=== PATIENT | female | born 1930 | race Caucasian/White ===

== ENCOUNTER 2020-03-01 09:22 | Inpatient (IN) | payer MEDICARE, BC ==
--- NOTE | 2020-03-01 09:28 | CT ---
EXAMINATION TYPE: CT chest wo con DATE OF EXAM: 03/01/2020 COMPARISON: NONE HISTORY: Pleural Effusion CT DLP: 374.4 mGycm. Automated Exposure Control for Dose Reduction was Utilized. TECHNIQUE: CT scan of the thorax is performed without IV contrast. FINDINGS: LUNGS: There is a large left pleural effusion with a loculated component anteriorly of the upper and midlung. Multifocal compressive atelectasis is seen in the lingula, upper lobe, and lower lobe. Perip heral predominant reticular early fibrotic change is seen without honeycombing. Right apical pleural parenchymal scarring is greater than left. No pneumothorax is seen. Scattered areas of subsegmental a telectasis on the right. MEDIASTINUM: Lack of IV contrast is noted to limit evaluation for mediastinal and especially hilar ad enopathy. There are no definitive greater than 1 cm hilar or mediastinal lymph nodes. Trace pericardi al effusion. Moderate coronary artery calcifications. OTHER: Surgical clips in the left breast along the pectoralis muscle from prior lumpectomy. Small hia yana hernia. High density in the gallbladder fundus. Evaluation for ultrasound is recommended on a non emergent basis to evaluate for polyp as this is nondependent. Possible fat in the gallbladder wall. E xtensive atherosclerosis of the upper abdominal aorta. Too small to accurately characterize right franki al lesion. Superior endplate deformity is seen of the L2 vertebral body, age indeterminate. 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 Mild compression deformity is also seen of T3 there is age-inde terminate. Sclerotic foci are punctate of T2 and T10 on sagittal image 53. These are indeterminant. IMPRESSION: 1. Large left pleural effusion in this symptomatic patient. Attempt was made to contact the ordering provider, however attempt was unsuccessful and the patient was instructed by the airplane technician Tonia of recommendation to proceed to the ER for evaluation of shortness of breath and potential thoracente sis. 2. Small pericardial effusion. 3. Indeterminant age compression deformities of L2 and T3. Sclerotic foci at T2 and T10 that are inde terminate. Given this patient's history of breast cancer nuclear medicine bone scan or PET/CT could b e considered. A [place] level critical message alert has been initiated for Helen Moss MD via the [facility] Critical Results System on 03/01/2020 9:25 AM. This message alert has been sent to Helen mcdonald MD via the preferences provided by the clinician for the receipt of Radiology Critical Fin rubi. Message ID [id number].
[2020-03-01 09:56] LABS: Basophils % (A) 0 %; Eosinophils # (A) 0.1 k/uL (0-0.7); Eosinophils % (A) 2 %; HCT 36.8 % (34.0-46.0); HGB 12.1 gm/dL (11.4-16.0); Lymphocytes # (A) 0.5 k/uL (1.0-4.8); Lymphocytes % (A) 10 %; MCH 40.5 pg (25.0-35.0); MCHC 32.9 g/dL (31.0-37.0); MCV 122.9 fL (80.0-100.0); Macrocytosis Marked; Mean Platelet Volume 7.8; Monocytes # (A) 0.3 k/uL (0-1.0); Monocytes % (A) 6 %; Neutrophils # (A) 4.6 k/uL (1.3-7.7); Neutrophils % (A) 80 %; Platelet Count 337 k/uL (150-450); RBC 2.99 m/uL (3.80-5.40); RDW 13.5 % (11.5-15.5); WBC 5.7 k/uL (3.8-10.6)
[2020-03-01 10:03] LABS: INR 0.9 (<1.2); Partial Thromboplastin Time 23.1 sec (22.0-30.0); Prothrombin Time 9.8 sec (9.0-12.0)
[2020-03-01 10:06] LABS: Poikilocytosis (M) Present
[2020-03-01 10:07] LABS: ALT 16 U/L (4-34); AST 26 U/L (14-36); African American GFR (CKD) >90 (>60 ml/min/1.73 sqM); Albumin 4.1 g/dL (3.5-5.0); Alkaline Phosphatase 88 U/L (38-126); Anion Gap 8 mmol/L; Blood Urea Nitrogen 21 mg/dL (7-17); Calcium 9.8 mg/dL (8.4-10.2); Carbon Dioxide 25 mmol/L (22-30); Chloride 100 mmol/L (98-107); Glucose 174 mg/dL (74-99); Magnesium 1.9 mg/dL (1.6-2.3); Non-African American GFR(CKD) 81 (>60 ml/min/1.73 sqM); Potassium 4.2 mmol/L (3.5-5.1); Sodium 133 mmol/L (137-145); Total Protein 7.2 g/dL (6.3-8.2)
[2020-03-01] MEDS ORDERED: NALOXONE 0.4 MG/ML 1 ML VIAL IV PRN (10:47)
--- NOTE | 2020-03-01 10:47 | ED ---
SOB HPI - General Chief Complaint: Shortness of Breath Stated Complaint: pleural effusion Time Seen by Provider: 03/01/20 09:25 Source: patient Mode of arrival: wheelchair Limitations: no limitations - History of Present Illness Initial Comments: The patient is an 89-year-old female with past history of breast cancer, valvular disease who presents to the emergency department presents to the emergency department for abnormal CT result. She states that she saw Dr. Holder a couple of weeks ago for her normal echo. They did see fluid around her heart and on her left lung. Because of this he sent her for a CT of her chest today. Study was performed which demonstrated a large left-sided pleural effusion. She was called and it was recommended to her going to the emergency department for drainage. The patient arrives stating that she has b een short of breath for considered stable. At time. States that it has not been any worse recently. Denies cough or hemoptysis. No fevers or chills. Patient has a history of breast cancer however is in remission. Dr. Artur méndez called the hospital to her that the patient coming in. - Related Data Home Medications Medication Instructions Recorded Confirmed Aspirin EC [Ecotrin] 325 mg PO DAILY 03/01/20 03/01/20 Atorvastatin [Lipitor] 10 mg PO DAILY 03/01/20 03/01/20 Calcium Carbonate 500 mg PO DAILY 03/01/20 03/01/20 Cholecalciferol (Vitamin D3) 2,000 unit PO DAILY 03/01/20 03/01/20 [Vitamin D3] Cyanocobalamin (Vitamin B-12) 1,000 mcg PO DAILY 03/01/20 03/01/20 [Vitamin B-12] Furosemide [Lasix] 40 mg PO DAILY 03/01/20 03/01/20 Hydroxyurea [Hydrea] 1,000 mg PO MO 03/01/20 03/01/20 Hydroxyurea [Hydrea] 1,500 mg PO SUTU 03/01/20 03/01/20 Lisinopril [Zestril] 2.5 mg PO DAILY 03/01/20 03/01/20 Metoprolol Succinate (ER) [Toprol 50 mg PO DAILY 03/01/20 03/01/20 XL] Potassium Chloride 10 meq PO DAILY 03/01/20 03/01/20 Allergies Allergy/AdvReac Type Severity Reaction Status Date / Time alendronate sodium Allergy FACE GETS Verified 03/01/20 11:09 RED AND PEELS Review of Systems ROS Statement: Those systems with pertinent positive or pertinent negative responses have been documented in the HPI. ROS Other: All systems not noted in ROS Statement are negative. Past Medical History Past Medical History: Cancer Additional Past Medical History / Comment(s): leaking heart valve, breast cancer History of Any Multi-Drug Resistant Organisms: None Reported Additional Past Surgical History / Comment(s): left breast partial mastectomy Past Psychological History: No Psychological Hx Reported Smoking Status: Never smoker Past Alcohol Use History: None Reported Past Drug Use History: None Reported General Exam Limitations: no limitations General appearance: alert, in no apparent distress Head exam: Present: atraumatic, normocephalic, normal inspection Eye exam: Present: normal appearance, PERRL, EOMI. Absent: scleral icterus, conjunctival injection, periorbital swelling ENT exam: Present: normal exam, mucous membranes moist Neck exam: Present: normal inspection. Absent: tenderness, meningismus, lymphadenopathy Respiratory exam: Present: rales (left ), decreased breath sounds (left ). A bsent: respiratory distress, wheezes, rhonchi, stridor Cardiovascular Exam: Present: regular rate, normal rhythm, normal heart sounds. Absent: systolic murmur, diastolic murmur, rubs, gallop, clicks GI/Abdominal exam: Present: soft, normal bowel sounds. Absent: distended, tenderness, guarding, rebound, rigid Extremities exam: Present: normal inspection, full ROM, normal capillary refill. Absent: tenderness, pedal edema, joint swelling, calf tenderness Back exam: Present: normal inspection Neurological exam: Present: alert, oriented X3, CN II-XII intact Psychiatric exam: Present: normal affect, normal mood Skin exam: Present: warm, dry, intact, normal color. Absent: rash Course Vital Signs 03/01/20 03/01/20 03/01/20 09:25 10:41 11:08 Temperature 98.0 F Pulse Rate 76 86 81 Respiratory 18 22 16 Rate Blood Pressure 140/79 115/76 146/50 O2 Sat by Pulse 95 98 99 Oximetry 03/01/20 03/01/20 03/01/20 12:01 14:13 14:50 Temperature 98.7 F Pulse Rate 126 H 143 H 163 H Respiratory 16 16 Rate Blood Pressure 102/75 113/76 O2 Sat by Pulse 99 99 Oximetry Medical Decision Making - Medical Decision Making The patient placed in room 6. A thorough history and physical exam was performed. Patient to continuous pulse ox and cardiac monitoring. Laboratory studies were conducted. CT was reviewed. Laboratory studies are remarkable for a sodium of 133. Dr. Mancuso is made aware of the patient's presence in the ER and he does come down to do a thoracentesis. Repeat chest x-rays performed which demonstrates a small pneumothorax. Because of this he is requesting to keep the patient. She'll be admitted to Dr. Plummer. After the patient's procedure she did flip into A. fib with a rapid ventricular rate. Patient has no history of atrial fibrillation is not anticoagulated. I did repeat a chest x-ray to ensure that it wasn't secondary to pneumothorax. It demonstrates a 50% pneumothorax however not worsened with the previous x-ray. I called and discussed case with Dr. Siddiqui who recommended that I place the patient on amiodarone. The patient was then admitted to the floor. Dr. Mancuso did see the patient again and stated that she should go to the ICU. Patient was then taken to the floor in stable condition - Lab Data Result diagrams: 03/02/20 03:38 03/02/20 03:38 Lab Results 03/01/20 03/01/20 03/01/20 Range/Units 09:42 09:42 09:42 WBC 5.7 (3.8-10.6) k/uL RBC 2.99 L (3.80-5.40) m/uL Hgb 12.1 (11.4-16.0) gm/dL Hct 36.8 (34.0-46.0) % MCV 122.9 H (80.0-100.0) fL MCH 40.5 H (25.0-35.0) pg MCHC 32.9 (31.0-37.0) g/dL RDW 13.5 (11.5-15.5) % Plt Count 337 (150-450) k/uL Neutrophils % 80 % Lymphocytes % 10 % Monocytes % 6 % Eosinophils % 2 % Basophils % 0 % Neutrophils # 4.6 (1.3-7.7) k/uL Lymphocytes # 0.5 L (1.0-4.8) k/uL Monocytes # 0.3 (0-1.0) k/uL Eosinophils # 0.1 (0-0.7) k/uL Basophils # 0.0 (0-0.2) k/uL Manual Slide Review Performed Poikilocytosis (manual Present Macrocytosis Marked A PT 9.8 (9.0-12.0) sec INR 0.9 (<1.2) APTT 23.1 (22.0-30.0) sec Sodium 133 L (137-145) mmol/L Potassium 4.2 (3.5-5.1) mmol/L Chloride 100 (98-107) mmol/L Carbon Dioxide 25 (22-30) mmol/L Anion Gap 8 mmol/L BUN 21 H (7-17) mg/dL Creatinine 0.63 (0.52-1.04) mg/dL Est GFR (CKD-EPI)AfAm >90 (>60 ml/min/1.73 sqM) Est GFR (CKD-EPI)NonAf 81 (>60 ml/min/1.73 sqM) Glucose 174 H (74-99) mg/dL Plasma Lactic Acid Jed (0.7-2.0) mmol/L Calcium 9.8 (8.4-10.2) mg/dL Magnesium 1.9 (1.6-2.3) mg/dL Total Bilirubin 1.0 (0.2-1.3) mg/dL AST 26 (14-36) U/L ALT 16 (4-34) U/L Alkaline Phosphatase 88 (38-126) U/L Troponin I (0.000-0.034) ng/mL NT-Pro-B Natriuret Pep pg/mL Total Protein 7.2 (6.3-8.2) g/dL Albumin 4.1 (3.5-5.0) g/dL 03/01/20 03/01/20 03/01/20 Range/Units 09:42 09:42 09:42 WBC (3.8-10.6) k/uL RBC (3.80-5.40) m/uL Hgb (11.4-16.0) gm/dL Hct (34.0-46.0) % MCV (80.0-100.0) fL MCH (25.0-35.0) pg MCHC (31.0-37.0) g/dL RDW (11.5-15.5) % Plt Count (150-450) k/uL Neutrophils % % Lymphocytes % % Monocytes % % Eosinophils % % Basophils % % Neutrophils # (1.3-7.7) k/uL Lymphocytes # (1.0-4.8) k/uL Monocytes # (0-1.0) k/uL Eosinophils # (0-0.7) k/uL Basophils # (0-0.2) k/uL Manual Slide Review Poikilocytosis (manual Macrocytosis PT (9.0-12.0) sec INR (<1.2) APTT (22.0-30.0) sec Sodium (137-145) mmol/L Potassium (3.5-5.1) mmol/L Chloride (98-107) mmol/L Carbon Dioxide (22-30) mmol/L Anion Gap mmol/L BUN (7-17) mg/dL Creatinine (0.52-1.04) mg/dL Est GFR (CKD-EPI)AfAm (>60 ml/min/1.73 sqM) Est GFR (CKD-EPI)NonAf (>60 ml/min/1.73 sqM) Glucose (74-99) mg/dL Plasma Lactic Acid Jed 1.3 (0.7-2.0) mmol/L Calcium (8.4-10.2) mg/dL Magnesium (1.6-2.3) mg/dL Total Bilirubin (0.2-1.3) mg/dL AST (14-36) U/L ALT (4-34) U/L Alkaline Phosphatase (38-126) U/L Troponin I <0.012 (0.000-0.034) ng/mL NT-Pro-B Natriuret Pep 519 pg/mL Total Protein (6.3-8.2) g/dL Albumin (3.5-5.0) g/dL - EKG Data EKG Comments: EKG performed at 1155 demonstrates age or fibrillation with a rapid ventricular rate of 142. QRS 82. QTC of 415. No acute ST segment elevations. Mild ST depression likely rate dependent. Critical Care Time Critical Care Time: Yes Critical Care Time: 35 minutes Disposition Clinical Impression: Shortness of breath, Pleural effusion Disposition: ADMITTED IP TO THIS HOSP Condition: Stable Is patient prescribed a controlled substance at d/c from ED?: No Decision to Admit Reason: Admit from EC Decision Date: 03/01/20 Decision Time: 10:46
--- NOTE | 2020-03-01 11:51 | US ---
EXAMINATION TYPE: US chest DATE OF EXAM: 03/01/2020 COMPARISON: CT 03/01/2020 CLINICAL HISTORY: left pleural effusion. Bedside thora with Dr Plummer TECHNIQUE: Targeted ultrasound of the posterior lower left hemithorax EXAM MEASUREMENTS: Left Pleural Effusion pocket size: 10.3 cm Left skin surface to fluid distance: 3.1 cm Left side marked for possible thoracentesis outside the dept. Pulmonologists are able to review the images in the patient?s EMR. IMPRESSIONS: Large left pleural effusion with maximum dimension of 10.3 cm.
--- NOTE | 2020-03-01 11:53 | XR ---
EXAMINATION TYPE: XR chest 1V portable DATE OF EXAM: 03/01/2020 COMPARISON: CT thorax of the same date HISTORY: Status post left-sided thoracentesis TECHNIQUE: Single frontal view of the chest is obtained. FINDINGS: There is marked improvement in degree of left-sided pleural effusion with possible small l eft apical pneumothorax. Left basilar airspace disease likely on the basis of atelectasis. Unfolding of the thoracic aorta. Senescent change of the right lungs and diffuse osseous demineralization. IMPRESSION: Possible small left apical pneumothorax versus overlying skin fold. Repeat radiograph is recommended. Marked improvement of the left pleural effusion. A [place] level critical message alert has been initiated for Natan Chung MD~[id number] via the [facility] Critical Results System on 03/01/2020 11:51 AM. This message alert has been sent to Natan Chung MD~[id number] via the preferences provided by the clinician for the receipt of Radiology Critical Findin gs. Message ID [id number].
[2020-03-01] MEDS ORDERED: HYDROXYUREA 500 MG CAP PO SCH (12:00)
--- NOTE | 2020-03-01 12:09 | P.CNPUL ---
History of Present Illness Consult date: 03/01/20 Requesting physician: Micheline Plummer Reason for consult: pleural effusion Chief complaint: Shortness of breath History of present illness: This is an 89-year-old female with history of breast cancer, previous left breast partial mastectomy. Known history of hypertension, hypercholesterolemia, patient had a recent chest x-ray for symptoms of shortness of breath, and she was told that she had left pleural effusion. CT of the chest showed large sized pleural effusion on the left side, hence patient was sent to the ER by the emergency room department because of her left pleural effusion. I saw the patient in the ER, and she was complaining of shortness of breath for the last [address] of the chest was reviewed. Patient underwent thoracentesis in the ER, and roughly 1200 mL of grossly bloody pleural effusion was drained from the left pleural space. However the patient developed small iatrogenic apical pneumothorax, hence I recommended admitting the patient overnight, observation, and repeat chest x-ray in a.m. Unless the patient develops worsening shortness of breath, chest x-ray could be done sooner. Please refer to the operative report. Review of Systems Constitutional: Negative HEENT: Negative Pulmonary: As noted in HPI. Cardiac: Negative GI: Negative Genitourinary: Negative Musculoskeletal: Negative Skin: Negative Endocrine: Negative Psychiatric: Negative Neurologic: Negative Lymphatics: Negative Past Medical History Past Medical History: Cancer Additional Past Medical History / Comment(s): leaking heart valve, breast cancer History of Any Multi-Drug Resistant Organisms: None Reported Additional Past Surgical History / Comment(s): left breast partial mastectomy Past Psychological History: No Psychological Hx Reported Smoking Status: Never smoker Past Alcohol Use History: None Reported Past Drug Use History: None Reported Medications and Allergies Home Medications Medication Instructions Recorded Confirmed Type Aspirin EC [Ecotrin] 325 mg PO DAILY 03/01/20 03/01/20 History Atorvastatin [Lipitor] 10 mg PO DAILY 03/01/20 03/01/20 History Calcium Carbonate 500 mg PO DAILY 03/01/20 03/01/20 History Cholecalciferol (Vitamin D3) 2,000 unit PO DAILY 03/01/20 03/01/20 History [Vitamin D3] Cyanocobalamin (Vitamin B-12) 1,000 mcg PO DAILY 03/01/20 03/01/20 History [Vitamin B-12] Furosemide [Lasix] 40 mg PO DAILY 03/01/20 03/01/20 History Hydroxyurea [Hydrea] 1,000 mg PO MO 03/01/20 03/01/20 History Hydroxyurea [Hydrea] 1,500 mg PO SUTU 03/01/20 03/01/20 History Lisinopril [Zestril] 2.5 mg PO DAILY 03/01/20 03/01/20 History Metoprolol Succinate (ER) [Toprol 50 mg PO DAILY 03/01/20 03/01/20 History Xl] Potassium Chloride 10 meq PO DAILY 03/01/20 03/01/20 History Allergies Allergy/AdvReac Type Severity Reaction Status Date / Time alendronate sodium Allergy FACE GETS Verified 03/01/20 11:09 RED AND PEELS Physical Exam Vitals: Vital Signs Temp Pulse Resp BP Pulse Ox 03/01/20 11:08 81 16 146/50 99 03/01/20 10:41 86 22 115/76 98 03/01/20 09:25 98.0 F 76 18 140/79 95 Intake and Output 02/29/20 03/01/20 03/01/20 22:59 06:59 14:59 Other: Weight 79.379 kg Physical Exam: Physical exam revealed an 89-year-old female, extremely pleasant, in no distress. Head: Atraumatic, normocephalic. HEENT:[Neck is supple.] [No neck masses.] [No thyromegaly.] [No JVD.] Chest: [Clear on the right side, diminished breath sounds on the left side. No rhonchi no wheezes. Cardiac Exam: [Normal S1 and S2, no S3 gallop, no murmur.] Abdomen: [Soft, nontender, no megaly, no rebound, no guarding, normal bowel sounds.] Extremities: [No clubbing, no edema, no cyanosis.] Neurological Exam: [No focal neurologic deficit.] Alert and oriented 3. Psychiatric: Normal mood, affect and normal mental status examination. Skin: No rashes. Results - Laboratory Findings CBC and BMP: 03/01/20 09:42 03/01/20 09:42 PT/INR, D-dimer PT 9.8 sec (9.0-12.0) 03/01/20 09:42 INR 0.9 (<1.2) 03/01/20 09:42 Abnormal lab findings: Abnormal Labs 03/01/20 03/01/20 09:42 09:42 RBC 2.99 L MCV 122.9 H MCH 40.5 H Lymphocytes # 0.5 L Macrocytosis Marked A Sodium 133 L BUN 21 H Glucose 174 H - Diagnostic Findings Chest x-ray: image reviewed CT scan - chest: image reviewed Additional studies: Ultrasound of the chest was reviewed and good sized left-sided pleural effusion noted Assessment and Plan Assessment: Impression: Left-sided pleural effusion, bloody, strongly suspicious for malignant pleural effusion. Iatrogenic left sided small apical pneumothorax. Recommendation: Patient will be admitted overnight, observed, repeat chest x-ray would be done later today or in a.m. Fluid was sent for different diagnostic studies including cytology. Discussed with the patient and her daughter the plan and willing to be admitted to the hospital at least overnight. We'll continue to follow. Time with Patient: Greater than 30
[2020-03-01] MEDS: FUROSEMIDE 40 MG TAB PO SCH (12:34)
[2020-03-01] MEDS ORDERED: MAGNESIUM SULFATE-D5W PMX 1 GM in DEXTROSE/WATER 1 100ML.BAG IVPB ONE (12:36)
[2020-03-01] MEDS ORDERED: DEXTROSE 5% IN WATER 250 ML with AMIODARONE 300 MG IV ONE (12:39)
--- NOTE | 2020-03-01 12:40 | XR ---
EXAMINATION TYPE: XR chest 1V portable DATE OF EXAM: 03/01/2020 COMPARISON: Chest x-ray earlier the same date. HISTORY: Atrial fibrillation post thoracentesis. Left apical pneumothorax. TECHNIQUE: Single frontal view of the chest is obtained. FINDINGS: Confirmation of a left apical pneumothorax estimated at approximately 15%. Small left pleu ral effusion has improved from the prior CT of the same date. Density at the right lung base relates to eventration of the hemidiaphragm and correlated with prior CT of 03/01/2020. Cardiomediastinal silh ouette is overall stable. Multifocal left-sided airspace disease represent atelectasis. Emphysematous changes and diffuse osseous demineralization again noted. IMPRESSION: Confirmation of a left apical pneumothorax status post thoracentesis. This is estimated at approximately 15%. A [place] level critical message alert has been initiated for Micheline Plummer MD via the [facility] Critical Results System on 03/01/2020 12:37 PM. This message alert has been sent to Micheline Plummer MD via the preferences provided by the clinician for the receipt of Radiology Critical Findings. [employer] e ID [id number].
[2020-03-01 13:28] LABS: Appearance,BF Bloody; Color,BF Red; Nucleated Cells, Body Fluid 156 /uL; RBC, Body Fluid 510000 /uL
--- NOTE | 2020-03-01 13:29 | PCN ---
PROCEDURE NOTE OPERATIVE REPORT: PROCEDURE PERFORMED: Left-sided thoracentesis. PREOPERATIVE DIAGNOSIS: Large left pleural effusion. POSTOPERATIVE DIAGNOSIS: Large left pleural effusion. ANESTHESIA USED: 2 mL of 1% lidocaine. PROCEDURE: The patient was seen in the ER, she was made aware of the procedure and the potential complications of the procedure, and consent was signed. Then, the area below the left scapula was prepared in a sterile fashion, drapes were applied. At the level of the 8th intercostal space, and tip of the scapula, the area was locally anesthetized. Then a 26-gauge needle was inserted at the same site, advanced into the pleural space until the fluid was obtained and the fluid was noted to be grossly bloody. Then a small incision was made. Standard thoracentesis catheter and needle were used, advanced into the pleural space, fluid was obtained, however, only couple 100 mL were obtained and noted to be grossly bloody. Then no further flow of fluid was noted. Multiple manipulations of the catheter did not make any improvement. Hence, the catheter was pulled out, and we called for ultrasound where in the area was localized with ultrasound, and at the same site, but 1 space lower, the area was prepared in a sterile fashion. Drapes were applied, and the area was locally anesthetized. With ultrasound available at bedside, the area was anesthetized, then a 26-gauge needle was inserted into the pleural space. Fluid was obtained. Again was noted to be grossly bloody and a small tiny incision was made, standard thoracentesis catheter and needle were used, advanced into the pleural space, and the fluid was obtained, drained about 1200 mL of grossly bloody fluid. However, at the end of the procedure, there was evidence of air coming out with the blood into the Pleur-evac container. Drained all the air and all the blood from the pleural space, and the chest x-ray was ordered postoperatively. There was evidence of a small left apical pneumothorax, it was probably about 10-15 percent pneumothorax noted on the left side. The patient was asymptomatic, hence I recommended admission and observation overnight and have a repeat chest x-ray in a.m. The procedure was well tolerated, but there was clearly evidence of iatrogenic left- sided pneumothorax. MMODL / IJN: [id number] /
[2020-03-01 13:34] LABS: Mononuclear WBC,Body Fluid 81 %; Polynuclear WBC,Body Fluid 19 %; Total Cells Counted,Body Fluid 100
--- NOTE | 2020-03-01 14:25 | XR ---
EXAMINATION TYPE: XR chest 1V portable DATE OF EXAM: 03/01/2020 COMPARISON: 03/01/2020 at 12:11 PM HISTORY: Follow-up pneumothorax TECHNIQUE: Single frontal view of the chest is obtained. FINDINGS: Mediastinal rotation to the right is partially attributable to patient positioning and rot ation. There is a similar-appearing left apical pneumothorax. Right diaphragmatic eventration, surgic al clips over the left lung, moderate pleural effusion on the left, and associated left basilar airsp sonal disease are similar to the prior. There remains diffuse osseous demineralization. IMPRESSION: Overall similar size of the left pneumothorax estimated at approximately 15%. Close surv eillance or thoracostomy tube placement recommended as there is new rightward mediastinal deviation, partially attribute able however to rotation and patient positioning. A [place] level critical message alert has been initiated for Natan Chung MD~[id number] via the [employer] [facility] Critical Results System on 03/01/2020 2:23 PM. This message alert has been sent to Natan Chung MD~[id number] via the preferences provided by the clinician for the receipt of Radiology Critical Finding s. Message ID [id number].
[2020-03-01 14:51] LABS: Glucose,Whole Blood 202 mg/dL (75-99)
[2020-03-01] MEDS: AMIODARONE 300 MG in DEXTROSE 5% IN WATER 250 ML IV SCH ×2 (19:00)
--- NOTE | 2020-03-01 19:26 | HP ---
HISTORY AND PHYSICAL DATE OF SERVICE: 03/01/2020 CHIEF COMPLAINT: Shortness of breath. HISTORY OF PRESENT ILLNESS: This 89 -year-old woman with a past medical history of leaky valve, breast cancer with partial mastectomy being followed by Dr. Carmen Reed in the outpatient setting is complaining of shortness of breath for the last couple days. Because of increased shortness, the patient came to [facility]. CT scan showed pleural effusion left side and Dr. Chung was able to drain about 1.3 L of fluid which is slightly bloody, but subsequently patient also had some 15% pneumothorax rather stable but the patient was noted to have atrial fibrillation with fast ventricular rate going up to 140. Patient was started on amiodarone drip and magnesium was also given. Patient admitted in ICU at this time. There is no history of fever, rigors or chills. No history of headache, loss of consciousness, seizures. 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 There is no history of any palpitations. No hematochezia or melena either. PAST MEDICAL HISTORY: Of leaky valve, history of breast cancer. MEDICATIONS: Home medications are: 1. KCl 10 mEq p.o. daily. 2. Toprol-XL 50 mg p.o. daily. 3. Zestril 2.5 mg daily. 4. Hydrea 1500 mg Monday, Monday and 1000 mg p.o. Monday. 5. Lasix 40 mg p.o. daily. 6. Vitamin B12 1000 mcg p.o. 7. Vitamin D3 2000 daily. 8. Calcium carbonate 500 mg p.o. daily. 9. Lipitor 10 mg daily. 10.Ecotrin 320 mg daily. ALLERGIES: ALENDRONATE. FAMILY HISTORY: No history of heart disease or strokes in the family. SOCIAL HISTORY: No history of smoking. No history of alcohol intake. REVIEW OF SYSTEMS: ENT: No diminished hearing. No diminished vision. CARDIOVASCULAR system as mentioned. RESPIRATION as mentioned earlier. GI no nausea or vomiting. no dysuria. NERVOUS SYSTEM: No numbness or weakness. ALLERGY/IMMUNOLOGY: No asthma or hayfever. MUSCULOSKELETAL as mentioned earlier. ENDOCRINE: No history of diabetes or hypothyroidism. HEMATOLOGY/ONCOLOGY: As mentioned earlier. CONSTITUTIONAL: As mentioned earlier. DERMATOLOGY: Negative. RHEUMATOLOGY: Negative. PSYCHIATRY: As mentioned earlier. PHYSICAL EXAM: Patient is alert, oriented x3. Pulse is 143, irregular. Blood pressure 113/76, respirations 16, temperature 98.7, pulse ox 99% on 2 L. HEENT: Conjunctivae normal. Oral mucosa moist. NECK is no jugular venous distention. No carotid bruit. No lymph node enlargement. CARDIOVASCULAR: S1, S2 muffled. RESPIRATION: Breath sounds diminished in the bases. Bilateral scattered rhonchi and crackles. ABDOMEN: Soft, nontender. No mass palpable. LEGS: No edema. No swelling. NERVOUS SYSTEM: Higher functions as mentioned earlier. Moves all 4 limbs. No focal motor or sensory deficits. LYMPHATICS: No lymph nodes palpable in the neck, axillae or groin. SKIN: No ulcer, no rashes and no bleeding. JOINTS: No active deforming arthropathy. LABS: WBC 5.6, hemoglobin 12.1, MCV 122.9, sodium 133, potassium 4.2, glucose 147. Fluid showed hemorrhagic fluid and mesothelioma. Cytology is pending. ASSESSMENT: 1. Acute left-sided pleural effusion status post thoracocentesis with 15% pneumothorax. 2. Atrial fibrillation with fast ventricular rate. 3. Hyponatremia. 4. Elevated random blood sugars. 5. Increased MCV. 6. History of left breast cancer with partial mastectomy. 7. History of leaky valve. 8. Hyperlipidemia. 9. Hypertension. 10.FULL CODE. RECOMMENDATIONS AND DISCUSSION: This 89 -year-old woman presented with multiple complex medical issues, we will monitor the patient closely, continue the current management. Continue with amiodarone drip and magnesium. Will repeat the lytes. Resume the home medications. We will also recommend a 2D echo with Doppler. Cardiology consultation. Pulmonary consultation. Monitor the patient in ICU. Overall prognosis guarded because of multiple complex medical issues as mentioned earlier. Patient had thoracocentesis and the possibly small heterogenic pneumothorax on the left side which is 15% and is rather stable. We will continue to monitor. Discussed with the patient who understands and agrees. A copy of this dictation forwarded to Dr. Carmen Reed who is the primary physician. MMODL / IJN: [id number] /
[2020-03-02 04:41] LABS: Basophils % (A) 0 %; Eosinophils # (A) 0.1 k/uL (0-0.7); Eosinophils % (A) 3 %; HGB 10.8 gm/dL (11.4-16.0); Lymphocytes # (A) 0.7 k/uL (1.0-4.8); Lymphocytes % (A) 15 %; MCHC 33.7 g/dL (31.0-37.0); Mean Platelet Volume 7.7; Monocytes # (A) 0.4 k/uL (0-1.0); Monocytes % (A) 9 %; Neutrophils % (A) 71 %; Platelet Count 279 k/uL (150-450); RBC 2.52 m/uL (3.80-5.40); RDW 13.4 % (11.5-15.5); WBC 4.3 k/uL (3.8-10.6)
[2020-03-02 04:47] LABS: MCH 42.9 pg (25.0-35.0); Macrocytosis Marked
[2020-03-02 05:00] LABS: African American GFR (CKD) >90 (>60 ml/min/1.73 sqM); Anion Gap 7 mmol/L; Blood Urea Nitrogen 19 mg/dL (7-17); Carbon Dioxide 24 mmol/L (22-30); Chloride 100 mmol/L (98-107); Glucose 160 mg/dL (74-99); Non-African American GFR(CKD) 82 (>60 ml/min/1.73 sqM); Potassium 3.8 mmol/L (3.5-5.1); Sodium 131 mmol/L (137-145)
[2020-03-02 05:14] VITALS: TEMP 98.1
[2020-03-02] MEDS: AMIODARONE 300 MG in DEXTROSE 5% IN WATER 250 ML IV SCH ×2 (05:23)
[2020-03-02] MEDS ORDERED: Potassium Replacement Protocol 1 EACH MISC MISCELLANE PRN (05:25)
[2020-03-02] MEDS ORDERED: POTASSIUM CHLORIDE ER 20 MEQ TAB.ER PO SCH (06:00)
--- NOTE | 2020-03-02 07:17 | XR ---
EXAMINATION TYPE: XR chest 1V portable DATE OF EXAM: 03/02/2020 COMPARISON: Prior chest x-ray 03/01/2020 HISTORY: Pneumothorax TECHNIQUE: Single frontal view of the chest is obtained. FINDINGS: Left-sided pneumothorax is again noted. There is basilar increased density obscuring the h emidiaphragm. Heart size is likely unchanged, aorta is dense and the patient is rotated. Some increas ed attenuation also present at the right lung base. There are overlying cardiac leads. IMPRESSION: No significant interval change. Left hydropneumothorax. 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
[2020-03-02] MEDS ORDERED: HYDROXYUREA 500 MG CAP PO SCH (09:00)
[2020-03-02] MEDS ORDERED: POTASSIUM CHLORIDE ER 10 MEQ TAB.ER.PRT PO SCH (09:00)
[2020-03-02] MEDS ORDERED: METOPROLOL SUCCINATE (ER) 50 MG TAB.ER.24H PO SCH (09:00)
[2020-03-02] MEDS ORDERED: LISINOPRIL 2.5 MG TAB PO SCH (09:00)
[2020-03-02] MEDS: FUROSEMIDE 40 MG TAB PO SCH (09:20)
--- NOTE | 2020-03-02 15:02 | P.PN ---
Subjective Progress Note Date: 03/02/20 Principal diagnosis: Left pleural effusion, iatrogenic left-sided pneumothorax, and a new onset atrial fibrillation with RVR This is an 89-year-old female with history of breast cancer, previous left breast partial mastectomy. Known history of hypertension, hypercholesterolemia, patient had a recent chest x-ray for symptoms of shortness of breath, and she was told that she had left pleural effusion. CT of the chest showed large sized pleural effusion on the left side, hence patient was sent to the ER by the emergency room department because of her left pleural effusion. I saw the patient in the ER, and she was complaining of shortness of breath for the last [address] of the chest was reviewed. Patient underwent thoracentesis in the ER, and roughly 1200 mL of grossly bloody pleural effusion was drained from the left pleural space. However the patient developed small iatrogenic apical pneumothorax, hence I recommended admitting the patient overnight, observation, and repeat chest x-ray in a.m. Unless the patient develops worsening shortness of breath, chest x-ray could be done sooner. Please refer to the operative report. Patient was reevaluated today on 03/02/20. Patient remains in the ICU. Yesterday she underwent left sided thoracentesis, over 1200 mL of the bloody effusion was removed from the left pleural space. And diagnostic workup is pending. Patient developed small pneumothorax/iatrogenic after the procedure, and she also developed atrial fibrillation with RVR while in the ER. Hence the patient was admitted to the ICU and she was placed on amiodarone drip. And she was seen by cardiology on consultation. Patient remains in the ICU, she converted to normal sinus rhythm last night. Her chest x-ray continues to show up on a 15% left-sided pneumothorax, and the patient is asymptomatic. Denies any shortness of breath, denies any chest pain, and the pneumothorax did not change much over the last 24 hours. She had serial x-rays since her thoracentesis, and no changes noted in the last 24 hours. Hence no need for placement of a chest tube or a thoravent at this time. Clinically the patient is doing great, and she is asking to be discharged home. The fluid which I drained yesterday was sent for different studies, and I don't expect the cytology to be back before or . If the patient is to be discharged home today or tomorrow, she could follow-up with me on outpatient basis by next week. Labs today showed WBC count of 4.3 hemoglobin is 10.8 and elected lites are normal renal profile is normal sodium is a bit low at 131. Objective - Vital Signs Vital signs: Vital Signs Temp 98.1 F 03/02/20 12:00 Pulse 90 03/02/20 14:00 Resp 24 03/02/20 14:00 BP 120/78 03/02/20 14:00 Pulse Ox 96 03/02/20 14:00 Intake & Output 03/01/20 03/02/20 03/02/20 18:59 06:59 18:59 Intake Total 60 490 160 Balance 60 490 160 Weight 78.9 kg 78.5 kg Intake: IV 60 240 160 0.9 KVO 60 240 160 Intake, IV Titration 250 Amount Amiodarone 300 mg In 250 Dextrose 5% in Water 250 ml @ 0.5 MG/MIN 25 mls/hr IV .Q10H [facility] Rx#: [id number] Other: Voiding Method Toilet Toilet Toilet # Voids 1 1 1 - Exam Physical Exam: Physical exam revealed an 89-year-old female, extremely pleasant, in no distress. On room air, O2 saturation is 95% Head: Atraumatic, normocephalic. HEENT:[Neck is supple.] [No neck masses.] [No thyromegaly.] [No JVD.] Chest: [Symmetrical chest expansion, clear throughout, no crackles or rhonchi or wheezes. Cardiac Exam: [Normal S1 and S2, no S3 gallop, no murmur.] Abdomen: [Soft, nontender, no megaly, no rebound, no guarding, normal bowel sounds.] Extremities: [No clubbing, no edema, no cyanosis.] Neurological Exam: [No focal neurologic deficit.] Alert and oriented 3. Psychiatric: Normal mood, affect and normal mental status examination. Skin: No rashes. - Labs CBC & Chem 7: 03/02/20 03:38 03/02/20 03:38 Labs: Abnormal Lab Results - Last 24 Hours (Table) 03/01/20 03/01/20 03/02/20 Range/Units 21:08 21:08 03:38 RBC 2.52 L (3.80-5.40) m/uL Hgb 10.8 L (11.4-16.0) gm/dL Hct 32.0 L (34.0-46.0) % MCV 127.0 H (80.0-100.0) fL MCH 42.9 H (25.0-35.0) pg Lymphocytes # 0.7 L (1.0-4.8) k/uL Macrocytosis Marked A ESR 72 H (0-20) mm/hr Sodium (137-145) mmol/L BUN (7-17) mg/dL Glucose (74-99) mg/dL C-Reactive Protein 14.4 H (<10.0) mg/L // Range/Units 03:38 RBC (3.80-5.40) m/uL Hgb (11.4-16.0) gm/dL Hct (34.0-46.0) % MCV (80.0-100.0) fL MCH (25.0-35.0) pg Lymphocytes # (1.0-4.8) k/uL Macrocytosis ESR (0-20) mm/hr Sodium 131 L (137-145) mmol/L BUN 19 H (7-17) mg/dL Glucose 160 H (74-99) mg/dL C-Reactive Protein (<10.0) mg/L Assessment and Plan Assessment: Impression: Left-sided pleural effusion, bloody, strongly suspicious for malignant pleural effusion. Iatrogenic left sided small apical pneumothorax. New-onset atrial fibrillation with RVR requiring amiodarone drip, and she remains presently on amiodarone. Recommendation: No need for chest tube placement. Mostly because the pneumothorax did not change much in size. Patient has no pulmonary symptoms whatsoever. And she is holding her saturations quite well on room air. Cardiology to address her atrial fibrillation and decide whether she needs to be on specific treatment right after discharge. Patient is to follow-up with me on outpatient basis in the next few days. We'll discuss the cytology on the fluid once we have it available in the next few days. We'll continue to follow in the meantime. If not discharged today, we'll recommend repeat chest x-ray in a.m. And the patient could be transferred to a monitor bed on selective Time with Patient: Less than 30
[2020-03-02 15:21] VITALS: BP 97/56; PULSE 79; RESP 16
--- NOTE | 2020-03-02 22:24 | DS ---
DISCHARGE SUMMARY DATE OF SERVICE: 03/02/2020 FINAL DIAGNOSES: 1. Acute left-sided pleural effusion status post thoracocentesis with 15% pneumothorax. 2. Atrial fibrillation with a fast ventricular rate, currently in normal sinus rhythm after amiodarone drip with paroxysmal atrial fibrillation. 3. Hyponatremia. 4. Elevated random blood sugar. 5. Increased MCV. 6. History of left breast cancer with partial mastectomy. 7. History of leaky valve. 8. Hyperlipidemia. 9. Hypertension. 10.FULL CODE. DISCHARGE DISPOSITION: Condition on discharge stable. Guarded prognosis. Total time taken 35 minutes. HISTORY OF PRESENT ILLNESS: This 89-year-old with a past medical history of being followed by Dr. Carmen Reed in the outpatient setting was admitted with acute left-sided pleural effusion, some shortness of breath. The patient had thoracocentesis by Dr. Chung. The final reports are pending at this time. There is minimal small 15% pneumothorax. She is stable. Recommend close outpatient followup. The patient also had atrial fibrillation with a fast ventricular rate. Cardiology saw the patient and the patient was given an amiodarone drip. She then converted to normal sinus rhythm. Patient improved significantly. Cardiology did not recommend any followup amiodarone at this time. Otherwise, coronavirus test was negative. ESR was 72. The patient is keen on going home at this time. The patient will be discharged in stable condition. Guarded prognosis. Further plans to follow up in the outpatient setting with primary physician, Cardiology and Pulmonology. On exam, vitals are stable. CARDIOVASCULAR SYSTEM: S1, S2. ABDOMEN: Soft. NERVOUS SYSTEM: No focal deficits. DISCHARGE MEDICATIONS AND ACTIVITY: DIET: Cardiac diet. FOLLOW UP: Follow up with Dr. Carmen Reed in 1-2 days. Follow up with Dr. Chung and Dr. Moss, as mentioned earlier. Followup with fluid reports in the outpatient. 1. Calcium carbonate 500 mg p.o. daily. 2. Ecotrin 320 mg daily. 3. Hydrea 1000 mg every Monday and 1500 mg other days. 4. Lasix 40 mg p.o. daily. 5. Lipitor 10 mg p.o. daily. 6. KCl 10 mEq p.o. daily. 7. Metoprolol 50 mg p.o. daily. 8. Vitamin B12 1000 mcg p.o. daily. 9. Vitamin D3 2000 daily. 10.Zestril 2.5 mg p.o. daily. Once again, the patient discharged in stable condition with guarded prognosis. MMPHOEBE / LEIN: [id number] /
== END 2020-03-02 16:05 | disposition home or self-care (01) | DRG 187 ==
LOC: EC 09:22 → 3SCARD 10:49 → 2SICU 14:03
PROVIDERS: ADMIT Hospitalist; ATTEND Hospitalist
PROC: 0W9B3ZX Drainage of Left Pleural Cavity, Percutaneous Approach, Diagnostic (ICD-10-PCS; principal; 2020-03-01)
DX: J90 Pleural effusion, not elsewhere classified (principal); J95.811 Postprocedural pneumothorax; E87.1 Hypo-osmolality and hyponatremia; E78.00 Pure hypercholesterolemia, unspecified; E78.5 Hyperlipidemia, unspecified; I10 Essential (primary) hypertension; I48.0 Paroxysmal atrial fibrillation; Z11.59 Encounter for screening for other viral diseases; Z79.82 Long term (current) use of aspirin; Z79.899 Other long term (current) drug therapy; Z85.3 Personal history of malignant neoplasm of breast; Z90.10 Acquired absence of unspecified breast and nipple; R73.9 Hyperglycemia, unspecified
CPT/HCPCS: 36415; 71045; 71250; 76604; 80048; 80053; 83605; 83735; 83880; 84484; 85025; 85610; 85652; 85730; 86140; 87635; 88108; 88305; 88341; 88342; 89050; 93005; 96365; 96366; 96368; 99285

== ENCOUNTER 2020-03-19 09:22 | Day surgery (SDC) | payer MEDICARE, BC ==
[2020-03-19 10:00] LABS: Mean Platelet Volume 8.5; Platelet Count 343 k/uL (150-450)
[2020-03-19 10:08] LABS: INR 1.1 (<1.2); Prothrombin Time 10.9 sec (9.0-12.0)
[2020-03-19 10:12] VITALS: TEMP 98.7
--- NOTE | 2020-03-19 11:05 | XR ---
EXAMINATION TYPE: XR chest 1V portable DATE OF EXAM: 03/19/2020 Comparison: 03/02/2020 Clinical History: 89-year-old female pre thoracentesis/evaluate pneumothorax Findings: Left heart margin secured by adjacent pleural parenchymal opacity. Enlarging moderate to large left p leural effusion from prior exam. There seems to be some secondary shift of the heart towards the righ t. Previous small left apical pneumothorax no longer identified. Impression: 1. Enlarging moderate to large left pleural effusion with underlying atelectasis and/or consolidation . 2. There seems to be some associated mass effect with slight shift of the heart towards the right. 3. Previous left apical pneumothorax no longer seen.
--- NOTE | 2020-03-19 12:07 | US ---
Ultrasound-guided therapeutic and diagnostic thoracentesis DATE OF EXAM: 03/19/2020 CLINICAL HISTORY: Left pleural effusion The procedure was discussed with the patient. The risks, complications, benefits, and alternatives we re discussed and any questions were answered. Informed consent was obtained. The patient was placed supine on the ultrasound table and prepped and draped in the usual sterile fas hion. All elements of maximal barrier and sterile technique were utilized. Under ultrasound guidance, access into the pleural space was obtained, via the thoracentesis catheter system and direct ultrasound guidance. Ap proximately 1.1 liters of blood-tinged serous fluid was removed. Sample sent to pathology for analysi s The patient was stable throughout the procedure and remained stable upon discharge from Department of Radiology. IMPRESSION: 1. Successful therapeutic and diagnostic thoracentesis under ultrasound guidance.
--- NOTE | 2020-03-19 12:23 | XR ---
EXAMINATION TYPE: XR chest 1V portable DATE OF EXAM: 03/19/2020 COMPARISON: 03/19/2020 HISTORY: Post left thoracentesis TECHNIQUE: Single frontal view of the chest is obtained. FINDINGS: The heart is enlarged and there is interval marked reduction in amount pleural fluid with some residual effusion and consolidation. Nodular density at the right lung base is compatible with a hernia of the diaphragm and peritoneal fat noted by previous CT scan. Heart is enlarged. Atherosclerotic change aorta. Curvature the spine was degenerative disc disease. D iffuse osteopenia arthropathy of the shoulders. No sizable pneumothorax. IMPRESSION: 1. No sizable pneumothorax with significant interval reduction in amount of pleural fluid.
[2020-03-19 12:41] VITALS: BP 114/67; PULSE 90; RESP 22
[2020-03-19 14:02] LABS: Appearance,BF Bloody; Color,BF Red
[2020-03-19 14:03] LABS: Nucleated Cells, Body Fluid 2000 /uL; RBC, Body Fluid 238000 /uL
[2020-03-19 14:06] LABS: Mononuclear WBC,Body Fluid 91 %; Polynuclear WBC,Body Fluid 3 %; Total Cells Counted,Body Fluid 100
[2020-03-19 22:15] LABS: Glucose, BF Source Pleural Fluid; Glucose, Body Fluid 142 mg/dL; LDH, Body Fluid Source Pleural Fluid; Total Protein, Body Fluid 4000 mg/dL
== END 2020-03-19 12:25 | disposition home or self-care (01) ==
LOC: RADPROMAIN 09:22
PROVIDERS: ATTEND Internal Medicine
DX: J90 Pleural effusion, not elsewhere classified (principal); R91.8 Other nonspecific abnormal finding of lung field
CPT/HCPCS: 32555; 36415; 71045; 82945; 83615; 84157; 85049; 85610; 87070; 87075; 87116; 87205; 87206; 88108; 88305; 89050

== ENCOUNTER 2020-03-28 13:59 | Inpatient (IN) | payer MEDICARE, BC ==
[2020-03-28] MEDS ORDERED: DILTIAZEM DRIP BOLUS FROM BAG 1 MG SOLN IV ONE (14:51)
[2020-03-28] MEDS ORDERED: SODIUM CHLORIDE 0.9% 1,000 ML IV STA (14:51)
--- NOTE | 2020-03-28 14:56 | ED ---
General Adult HPI - General Chief complaint: Shortness of Breath Stated complaint: KIRIT Time Seen by Provider: 03/28/20 14:55 Source: patient, family, RN notes reviewed, old records reviewed Mode of arrival: wheelchair Limitations: no limitations - History of Present Illness Initial comments: This is an 89-year-old female presents emergency Department with a recent diagnosis of viral effusions which she's had drain on 2 different occasions. Patient also was recently diagnosed with atrial fibrillation. And cardioverted. Patient comes in today because she's feeling as though she is short of breath and her heart is racing. Patient denies any chest pain. Patient denies any recent fever chills or new cough. Patient denies any swelling to her legs or calf tenderness. Patient denies abdominal pain patient has nausea vomiting diarrhea. - Related Data Home Medications Medication Instructions Recorded Confirmed Aspirin EC [Ecotrin] 325 mg PO DAILY 03/01/20 03/19/20 Atorvastatin [Lipitor] 10 mg PO DAILY 03/01/20 03/19/20 Calcium Carbonate 500 mg PO DAILY 03/01/20 03/19/20 Cholecalciferol (Vitamin D3) 2,000 unit PO DAILY 03/01/20 03/19/20 [Vitamin D3] Cyanocobalamin (Vitamin B-12) 1,000 mcg PO DAILY 03/01/20 03/19/20 [Vitamin B-12] Furosemide [Lasix] 40 mg PO BID 03/01/20 03/19/20 Hydroxyurea [Hydrea] 1,000 mg PO WEEKLY 03/01/20 03/19/20 Hydroxyurea [Hydrea] 1,500 mg PO DAILY 03/01/20 03/19/20 Lisinopril [Zestril] 2.5 mg PO DAILY 03/01/20 03/19/20 Metoprolol Succinate (ER) [Toprol 50 mg PO DAILY 03/01/20 03/19/20 XL] Potassium Chloride 10 meq PO DAILY 03/01/20 03/19/20 Albuterol Nebulized [Ventolin 2.5 mg INHALATION Q6H 03/17/20 03/19/20 Nebulized] Allergies Allergy/AdvReac Type Severity Reaction Status Date / Time alendronate sodium Allergy FACE GETS Verified 03/28/20 14:10 SHANNAN Review of Systems ROS Statement: Those systems with pertinent positive or pertinent negative responses have been documented in the HPI. ROS Other: All systems not noted in ROS Statement are negative. Past Medical History Past Medical History: Cancer Additional Past Medical History / Comment(s): leaking heart valve, breast cancer History of Any Multi-Drug Resistant Organisms: None Reported Additional Past Surgical History / Comment(s): left breast partial mastectomy, thoracentesis times 2 Past Psychological History: No Psychological Hx Reported Smoking Status: Never smoker Past Alcohol Use History: None Reported Past Drug Use History: None Reported General Exam - General Exam Comments Initial Comments: GENERAL: Patient is well-developed and well-nourished. Patient is nontoxic and well- hydrated and is in mild distress. ENT: Neck is soft and supple. No significant lymphadenopathy is noted. Oropharynx is clear. Moist mucous membranes. Neck has full range of motion without eliciting any pain. EYES: The sclera were anicteric and conjunctiva were pink and moist. Extraocular movements were intact and pupils were equal round and reactive to light. Eyelids were unremarkable. PULMONARY: Unlabored respirations. Good breath sounds bilaterally. No audible rales rhonchi or wheezing was noted. CARDIOVASCULAR: Patient is tachycardic with an irregular heart rate at about 150 beats a minute ABDOMEN: Soft and nontender with normal bowel sounds. SKIN: Skin is clear with no lesions or rashes and otherwise unremarkable. NEUROLOGIC: Patient is alert and oriented x3. Cranial nerves II through XII are grossly intact. Motor and sensory are also intact. Normal speech, volume and content. Symmetrical smile. MUSCULOSKELETAL: Normal extremities with adequate strength and full range of motion. No lower extremity swelling or edema. No calf tenderness. LYMPHATICS: No significant lymphadenopathy is noted PSYCHIATRIC: Normal psychiatric evaluation. Limitations: no limitations Course Vital Signs 03/28/20 03/28/20 03/28/20 14:10 14:14 14:48 Temperature 98.3 F Pulse Rate 130 H Respiratory 22 20 18 Rate Blood Pressure 96/58 O2 Sat by Pulse 93 L Oximetry 03/28/20 15:14 Temperature Pulse Rate 135 H Respiratory 18 Rate Blood Pressure 99/58 O2 Sat by Pulse 96 Oximetry Medical Decision Making - Medical Decision Making EKG shows atrial fibrillation with rapid ventricular response at 142 bpm QRS is 86 QT interval is 288 QTC is 443. Patient's EKG shows no ST segment elevation or depression. Chest x-ray shows left sided pleural effusion no worse than the previous x-ray and Patient was started on Cardizem in the emergency department and was given a shiva us as well. Patient's heart rate came down into the 120s blood pressure remained about 100 systolic I spoke with Dr[address] Plummer he agreed to admit the patient admitted the patient wrote admitting orders I started the patient on heparin and left the patient on Cardizem - Lab Data Result diagrams: 03/28/20 14:59 03/28/20 14:59 Lab Results 03/28/20 03/28/20 03/28/20 Range/Units 14:59 14:59 14:59 WBC 6.0 (3.8-10.6) k/uL RBC 2.88 L (3.80-5.40) m/uL Hgb 11.3 L (11.4-16.0) gm/dL Hct 34.2 (34.0-46.0) % MCV 118.5 H D (80.0-100.0) fL MCH 39.1 H (25.0-35.0) pg MCHC 33.0 (31.0-37.0) g/dL RDW 14.0 (11.5-15.5) % Plt Count 547 H (150-450) k/uL Neutrophils % 75 % Lymphocytes % 13 % Monocytes % 8 % Eosinophils % 0 % Basophils % 0 % Neutrophils # 4.5 (1.3-7.7) k/uL Lymphocytes # 0.8 L (1.0-4.8) k/uL Monocytes # 0.5 (0-1.0) k/uL Eosinophils # 0.0 (0-0.7) k/uL Basophils # 0.0 (0-0.2) k/uL Hypochromasia Slight Poikilocytosis Slight Macrocytosis Marked A PT 10.3 (9.0-12.0) sec INR 1.0 (<1.2) APTT 21.3 L (22.0-30.0) sec Sodium 131 L (137-145) mmol/L Potassium 4.2 (3.5-5.1) mmol/L Chloride 90 L (98-107) mmol/L Carbon Dioxide 28 (22-30) mmol/L Anion Gap 13 mmol/L BUN 27 H (7-17) mg/dL Creatinine 0.67 (0.52-1.04) mg/dL Est GFR (CKD-EPI)AfAm >90 (>60 ml/min/1.73 sqM) Est GFR (CKD-EPI)NonAf 79 (>60 ml/min/1.73 sqM) Glucose 206 H (74-99) mg/dL Calcium 9.5 (8.4-10.2) mg/dL Magnesium 1.8 (1.6-2.3) mg/dL Total Bilirubin 1.1 (0.2-1.3) mg/dL AST 24 (14-36) U/L ALT 16 (4-34) U/L Alkaline Phosphatase 100 (38-126) U/L Troponin I (0.000-0.034) ng/mL Total Protein 6.5 (6.3-8.2) g/dL Albumin 3.4 L (3.5-5.0) g/dL 03/28/20 Range/Units 14:59 WBC (3.8-10.6) k/uL RBC (3.80-5.40) m/uL Hgb (11.4-16.0) gm/dL Hct (34.0-46.0) % MCV (80.0-100.0) fL MCH (25.0-35.0) pg MCHC (31.0-37.0) g/dL RDW (11.5-15.5) % Plt Count (150-450) k/uL Neutrophils % % Lymphocytes % % Monocytes % % Eosinophils % % Basophils % % Neutrophils # (1.3-7.7) k/uL Lymphocytes # (1.0-4.8) k/uL Monocytes # (0-1.0) k/uL Eosinophils # (0-0.7) k/uL Basophils # (0-0.2) k/uL Hypochromasia Poikilocytosis Macrocytosis PT (9.0-12.0) sec INR (<1.2) APTT (22.0-30.0) sec Sodium (137-145) mmol/L Potassium (3.5-5.1) mmol/L Chloride (98-107) mmol/L Carbon Dioxide (22-30) mmol/L Anion Gap mmol/L BUN (7-17) mg/dL Creatinine (0.52-1.04) mg/dL Est GFR (CKD-EPI)AfAm (>60 ml/min/1.73 sqM) Est GFR (CKD-EPI)NonAf (>60 ml/min/1.73 sqM) Glucose (74-99) mg/dL Calcium (8.4-10.2) mg/dL Magnesium (1.6-2.3) mg/dL Total Bilirubin (0.2-1.3) mg/dL AST (14-36) U/L ALT (4-34) U/L Alkaline Phosphatase (38-126) U/L Troponin I 0.022 (0.000-0.034) ng/mL Total Protein (6.3-8.2) g/dL Albumin (3.5-5.0) g/dL Critical Care Time Critical Care Time: Yes Total Critical Care Time: 35 Disposition Clinical Impression: Atrial fibrillation with RVR Disposition: ADMITTED IP TO THIS HOSP Referrals: Carmen Reed MD [Primary Care Provider] - 1-2 days Time of Disposition: 16:00
[2020-03-28] MEDS: DILTIAZEM 125 MG in SODIUM CHLORIDE 0.9% 100 ML IV SCH (15:11)
[2020-03-28 15:12] LABS: Basophils % (A) 0 %; Eosinophils % (A) 0 %; HCT 34.2 % (34.0-46.0); HGB 11.3 gm/dL (11.4-16.0); Hypochromasia Slight; Lymphocytes # (A) 0.8 k/uL (1.0-4.8); Lymphocytes % (A) 13 %; MCH 39.1 pg (25.0-35.0); Macrocytosis Marked; Mean Platelet Volume 7.9; Monocytes # (A) 0.5 k/uL (0-1.0); Monocytes % (A) 8 %; Neutrophils # (A) 4.5 k/uL (1.3-7.7); Neutrophils % (A) 75 %; Platelet Count 547 k/uL (150-450); Poikilocytosis Slight; RBC 2.88 m/uL (3.80-5.40)
[2020-03-28 15:19] LABS: MCV 118.5 fL (80.0-100.0)
[2020-03-28 15:30] LABS: ALT 16 U/L (4-34); AST 24 U/L (14-36); African American GFR (CKD) >90 (>60 ml/min/1.73 sqM); Albumin 3.4 g/dL (3.5-5.0); Alkaline Phosphatase 100 U/L (38-126); Anion Gap 13 mmol/L; Blood Urea Nitrogen 27 mg/dL (7-17); Calcium 9.5 mg/dL (8.4-10.2); Carbon Dioxide 28 mmol/L (22-30); Chloride 90 mmol/L (98-107); Glucose 206 mg/dL (74-99); Magnesium 1.8 mg/dL (1.6-2.3); Non-African American GFR(CKD) 79 (>60 ml/min/1.73 sqM); Potassium 4.2 mmol/L (3.5-5.1); Sodium 131 mmol/L (137-145); Total Bilirubin 1.1 mg/dL (0.2-1.3); Total Protein 6.5 g/dL (6.3-8.2)
--- NOTE | 2020-03-28 15:37 | XR ---
EXAMINATION TYPE: XR chest 2V DATE OF EXAM: 03/28/2020 COMPARISON: 03/19/2020 HISTORY: 89-year-old female shortness of breath, dysrhythmia, prior thoracenteses. TECHNIQUE: AP and lateral views FINDINGS: Heart remains moderately enlarged. Diffuse interstitial density. Moderate to large left pleural effus ion, similar to prior. IMPRESSION: 1. Moderate cardiomegaly. Interstitial density. Correlate to exclude mild pulmonary vascular congesti on. 2. Continued moderate to large left pleural effusion with adjacent atelectasis and/or consolidation, not significantly changed from 03/19/2020.
[2020-03-28 15:40] LABS: Partial Thromboplastin Time 21.3 sec (22.0-30.0); Prothrombin Time 10.3 sec (9.0-12.0)
[2020-03-28] MEDS ORDERED: SODIUM CHLORIDE 0.9% 1,000 ML IV ONE (16:00)
[2020-03-28] MEDS ORDERED: HEPARIN SODIUM,PORCINE 5,000 UNIT/ML 1 ML VIAL IV ONE (16:02)
[2020-03-28] MEDS: HEPARIN SOD,PORK IN 0.45% NACL 25,000 UNIT in 0.45% NACL 1 250ML.BAG IV SCH (16:52)
[2020-03-28] MEDS ORDERED: ALBUTEROL NEBULIZED 2.5 MG/3 ML INHALATION PRN (19:44)
[2020-03-28] MEDS ORDERED: ACETAMINOPHEN TAB 500 MG TAB PO PRN (19:46)
[2020-03-28] MEDS ORDERED: ALPRAZolam 0.25 MG TAB PO PRN (19:46)
[2020-03-28] MEDS ORDERED: HYDROcodone/APAP 5-325MG 1 EACH TAB PO PRN (19:46)
--- NOTE | 2020-03-28 20:59 | HP ---
HISTORY AND PHYSICAL DATE OF SERVICE: 03/28/2020 CHIEF COMPLAINT: Shortness of breath. HISTORY OF PRESENT ILLNESS: This 89-year-old woman with a past medical history of multiple medical problems, history of atrial fibrillation, history of breast cancer, history of back surgery, being followed by Dr. Carmen Reed in the outpatient setting was recently admitted with left-sided pleural effusion. The patient had thoracocentesis. At that time, cytology showed no evidence of malignancy. Patient also had atrial fibrillation. Patient also had a history of leaky valve, hypertension, hyperlipidemia, and the patient went home and evaluated by Dr. Bustos. The patient also had another episode of thoracocentesis about 700 mL in the outpatient setting with Interventional Radiology. Dr. Bustos's recommended evaluation by [facility] Cardiothoracic surgery for the pleural effusion. Because of increased shortness of breath, patient came to [facility], found to have a left-sided pleural effusion which was rather similar as previously. The patient had cardioversion recently and the patient was noted to have atrial fibrillation with fast ventricular rate. Cardizem drip was initiated. Patient admitted for evaluation and treatment. There is no history of fever, rigors or chills. No history of headache, loss of consciousness, seizures at this time. The basic labs showed anemia with macrocytosis and as well as hyponatremia. There is no history of fever, rigors or chills. PAST MEDICAL HISTORY: History of recent atrial fibrillation, history of pleural effusion, as mentioned earlier, history of leaky valve, history of back surgery, history of left breast partial mastectomy. MEDICATIONS: Prior to admission, home medications are: 1. Hydrea 1000 mg p.o. Monday. 2. Vitamin B12 1000 mcg p.o. daily. 3. Vitamin D3 5000 daily. 4. Calcium carbonate 500 mg p.o. daily. 5. Ecotrin 320 mg daily. 6. Potassium chloride 10 mEq p.o. b.i.d. 7. Toprol-XL 50 mg p.o. daily. 8. Zestril 2.5 mg p.o. daily. 9. Hydrea 1500 mg Monday, Monday, Monday, , Monday, and Monday. 10.Lasix 40 mg p.o. b.i.d. 11.Lipitor 10 mg p.o. daily. 12.Ventolin 2.5 q.4h p.r.n. ALLERGIES: FOSAMAX. FAMILY HISTORY: History of CHF in the family. SOCIAL HISTORY: No history of smoking. No alcohol intake. REVIEW OF SYSTEMS: ENT diminished vision, hearing. Cardio system as mentioned earlier. RESPIRATORY: As mentioned earlier. GI no nausea. no dysuria. NERVOUS SYSTEM: No numbness or weakness. ALLERGY/IMMUNOLOGY: No asthma or hayfever. MUSCULOSKELETAL as mentioned earlier. HEMATOLOGY/ONCOLOGY: As mentioned earlier. ENDOCRINE as mentioned earlier. CONSTITUTIONAL: As mentioned earlier. DERMATOLOGY: Negative. RHEUMATOLOGY negative. PSYCHIATRY as mentioned earlier. PHYSICAL EXAMINATION: Alert and oriented times three. Pulse 110, irregular, tachycardic and atrial fibrillation. Respirations 16, temperature 98.3, pulse ox 98% on 2 L. Blood pressure 102/57. HEENT: Conjunctivae normal. Oral mucosa moist. NECK is no jugular venous distention. No carotid bruit. No lymph node enlargement. CARDIOVASCULAR: S1, S2 muffled. Tachycardic. Ejection systolic murmur present. Respirations: Breath sounds diminished in the bases. A few scattered rhonchi and crackles. ABDOMEN: Soft, nontender. No mass palpable. LEGS: No edema. No swelling. NERVOUS SYSTEM: Higher functions as mentioned earlier. Moves all 4 limbs. No focal motor or sensory deficits. LYMPHATICS: No lymph nodes palpable in the neck, axillae or groin. JOINTS: No active deforming arthropathy. LABS: WBC 6, hemoglobin 11.3, MCV 118, platelet count 547. Sodium is 131, potassium 4.2, and glucose 206. Albumin 3.4. ASSESSMENT: 1. Shortness of breath possibly multifactorial. 2. Atrial fibrillation with fast ventricular rate. 3. Left pleural effusion, recurrent status post thoracocentesis multiple times. 4. Aortic stenosis. 5. Anemia. 6. Macrocytosis. 7. Increased platelets. 8. Hyponatremia. 9. Paroxysmal atrial fibrillation. 10.Elevated random blood sugar. 11.History of left breast cancer with partial mastectomy. 12.History of leaky valve. 13.Hyperlipidemia. 14.Hypertension. 15.FULL CODE. RECOMMENDATIONS AND DISCUSSION: This 89-year-old woman who presented with multiple complex medical issues, we will monitor the patient closely. Continue the current management. Symptomatic treatment. Otherwise, I would also recommend a 2D echo with Doppler and continue to monitor along with Cardiology and Pulmonology. Prognosis guarded because of multiple complex medical issues. Further recommendations to follow. A copy of this dictation is being forwarded to Dr. Carmen Reed who is the primary physician. Discussed with the patient's family at length. Understands and agrees. Home medications will be resumed. The patient had an appointment in [facility] this week. We will try to keep the patient able to keep the appointment. MMODL / IJN: [id number] /
[2020-03-28] MEDS: FUROSEMIDE 40 MG TAB PO SCH (21:11)
[2020-03-28] MEDS: POTASSIUM CHLORIDE ER 10 MEQ TAB.ER.PRT PO SCH (21:11)
--- NOTE | 2020-03-28 21:27 | P.CRDCN ---
History of Present Illness Consult date: 03/28/20 History of present illness: This is a 89-year-old female with history of aortic valve stenosis and regurgitation was recently evaluated by me because of increasing shortness of breath and cough. Chest x-ray and computed tomography scan showed left-sided pleural effusion. Patient to BNP was not that much elevated. She was seen by yacht master and had pleural tap in February. It showed bloody pleural fluid but no malignant cells were identified. Patient had a bout of atrial fibrillation at the time from which she converted to sinus rhythm. Subsequently patient had a recurrence of the fluid and had a product of a cane by the radiologist. Again, cytology was negative for malignant cells. She is scheduled to see a cardiothoracic surgeon at [facility]. Patient came to the hospital not feeling well and short of breath. She was found to be in atrial fibrillation with rapid ventricular response. Patient also has recurrence of the pleural fluid. She is instructed on IV Cardizem and also IV heparin. Patient also has nausea, lack of appetite and has lost weight. Further recommendations depend upon clinical course. It appears there is suspicion for possible malignancy Review of Systems As per the chart Past Medical History Past Medical History: Atrial Fibrillation, Cancer Additional Past Medical History / Comment(s): leaking heart valve, breast cancer, afib post thoracentesis on 04/01 History of Any Multi-Drug Resistant Organisms: None Reported Past Surgical History: Back Surgery Additional Past Surgical History / Comment(s): left breast partial mastectomy, thoracentesis times 2 Past Anesthesia/Blood Transfusion Reactions: No Reported Reaction Past Psychological History: No Psychological Hx Reported Smoking Status: Never smoker Past Alcohol Use History: None Reported Past Drug Use History: None Reported - Past Family History Mother Family Medical History: Congestive Heart Failure (CHF) Medications and Allergies Home Medications Medication Instructions Recorded Confirmed Type Aspirin EC [Ecotrin] 325 mg PO DAILY 03/01/20 03/28/20 History Atorvastatin [Lipitor] 10 mg PO DAILY 03/01/20 03/28/20 History Calcium Carbonate 500 mg PO DAILY 03/01/20 03/28/20 History Cyanocobalamin (Vitamin B-12) 1,000 mcg PO DAILY 03/01/20 03/28/20 History [Vitamin B-12] Furosemide [Lasix] 40 mg PO BID 03/01/20 03/28/20 History Hydroxyurea [Hydrea] 1,000 mg PO MO 03/01/20 03/28/20 History Hydroxyurea [Hydrea] 1,500 mg PO SUTUWETHFRSA 03/01/20 03/28/20 History Lisinopril [Zestril] 2.5 mg PO DAILY 03/01/20 03/28/20 History Metoprolol Succinate (ER) [Toprol 50 mg PO DAILY 03/01/20 03/28/20 History XL] Potassium Chloride 10 meq PO BID 03/01/20 03/28/20 History Albuterol Nebulized [Ventolin 2.5 mg INHALATION RT-Q4H PRN 03/17/20 03/28/20 History Nebulized] Cholecalciferol [Vitamin D3 (25 5,000 unit PO DAILY 03/28/20 03/28/20 History Mcg = 1000 Iu)] Allergies Allergy/AdvReac Type Severity Reaction Status Date / Time alendronate sodium Allergy FACE GETS Verified 03/28/20 17:23 RED AND PEELS Physical Exam Vitals: Vital Signs Temp Pulse Pulse Resp BP BP Pulse Ox 03/28/20 17:30 98.3 F 110 H 16 102/57 98 03/28/20 16:57 119 H 18 115/59 98 03/28/20 15:14 135 H 18 99/58 96 03/28/20 14:48 18 03/28/20 14:14 20 03/28/20 14:10 98.3 F 130 H 22 96/58 93 L Intake and Output 03/28/20 03/28/20 03/28/20 06:59 14:59 22:59 Intake Total 8.75 Balance 8.75 Intake: Intake, IV Titration 8.75 Amount Diltiazem 125 mg In 8.75 Sodium Chloride 0.9% 100 ml @ 5 MG/HR 5 mls/hr IV .Q24H [facility] Rx#:[id number] Other: Weight 74.389 kg 74.389 kg GENERAL EXAM: Patient is alert and oriented and doesn't appear to be in any acute distress HEENT: Normocephalic. Normal reaction of pupils, equal size, normal range of extraocular motion. No erythema or exudates in the throat. NECK: No masses, no nuchal rigidity. CHEST: No chest wall deformity. LUNGS: Diminished breath sounds, left side. HEART: Irregular heart rhythm. Systolic murmur in the aortic area ABDOMEN: No hepatosplenomegaly, normal bowel sounds, no guarding or rigidity. SKIN: No rashes CENTRAL NERVOUS SYSTEM: No focal deficits. EXTREMITIES: Moderate edema Results 03/28/20 14:59 03/28/20 14:59 Cardiac Enzymes 03/28/20 03/28/20 Range/Units 14:59 14:59 AST 24 (14-36) U/L Troponin I 0.022 (0.000-0.034) ng/mL Coagulation 03/28/20 Range/Units 14:59 PT 10.3 (9.0-12.0) sec APTT 21.3 L (22.0-30.0) sec CBC 03/28/20 Range/Units 14:59 WBC 6.0 (3.8-10.6) k/uL RBC 2.88 L (3.80-5.40) m/uL Hgb 11.3 L (11.4-16.0) gm/dL Hct 34.2 (34.0-46.0) % Plt Count 547 H (150-450) k/uL Comprehensive Metabolic Panel 03/28/20 Range/Units 14:59 Sodium 131 L (137-145) mmol/L Potassium 4.2 (3.5-5.1) mmol/L Chloride 90 L (98-107) mmol/L Carbon Dioxide 28 (22-30) mmol/L BUN 27 H (7-17) mg/dL Creatinine 0.67 (0.52-1.04) mg/dL Glucose 206 H (74-99) mg/dL Calcium 9.5 (8.4-10.2) mg/dL AST 24 (14-36) U/L ALT 16 (4-34) U/L Alkaline Phosphatase 100 (38-126) U/L Total Protein 6.5 (6.3-8.2) g/dL Albumin 3.4 L (3.5-5.0) g/dL Current Medications Generic Name Dose Route Start Last Admin Trade Name Freq PRN Reason Stop Dose Admin Acetaminophen 500 mg 03/28/20 19:46 Tylenol Tab PO Q6HR PRN Fever and/ or Pain Hydrocodone Bitart/Acetaminophen 1 each 03/28/20 19:46 [place] 5-325 PO Q6HR PRN Pain Albuterol Sulfate 2.5 mg 03/28/20 19:44 Ventolin Nebulized INHALATION RT-Q4H PRN Shortness Of Breath Alprazolam 0.25 mg 03/28/20 19:46 Xanax PO TID PRN Anxiety Aspirin 325 mg 03/29/20 09:00 Aspirin PO DAILY [facility] Atorvastatin Calcium 10 mg 03/29/20 09:00 Lipitor PO DAILY [facility] Calcium Carbonate/Glycine 500 mg 03/29/20 09:00 Tums PO DAILY [facility] Cholecalciferol 5,000 unit 03/29/20 09:00 Vitamin D3 (25 Mcg = 1000 Iu) PO DAILY [facility] Cyanocobalamin 1,000 mcg 03/29/20 09:00 Vitamin B-12 PO DAILY [facility] Furosemide 40 mg 03/28/20 21:00 03/28/20 21:11 Lasix PO 40 mg BID [facility] Administration Hydroxyurea 1,500 mg 03/29/20 09:00 Hydrea PO [id number]@0900 [facility] Hydroxyurea 1,000 mg 03/30/20 09:00 Hydrea PO Mo@0900 [facility] Diltiazem HCl 125 mg/ Sodium 125 mls @ 5 mls/hr 03/28/20 15:00 03/28/20 16:56 Chloride IV 10 mg/hr .Q24H [facility] 10 mls/hr Infusion 5 MG/HR Heparin Sodium/Sodium Chloride 250 mls @ 8.927 mls/hr 03/28/20 16:15 03/28/20 16:52 25,000 unit/ Sodium Chloride IV 12 units/kg/hr .Q24H [facility] 8.927 mls/hr Administration Protocol 12 UNITS/KG/HR Lisinopril 2.5 mg 03/29/20 09:00 Zestril PO DAILY [facility] Metoprolol Succinate 50 mg 03/29/20 09:00 Toprol Xl PO DAILY [facility] Pantoprazole Sodium 40 mg 03/29/20 07:30 Protonix PO AC-BRKFST [facility] Potassium Chloride 10 meq 03/28/20 21:00 03/28/20 21:11 K-Dur 10 PO 10 meq BID [facility] Administration Intake and Output 03/28/20 03/28/20 03/28/20 06:59 14:59 22:59 Intake Total 8.75 Balance 8.75 Intake: Intake, IV Titration 8.75 Amount Diltiazem 125 mg In 8.75 Sodium Chloride 0.9% 100 ml @ 5 MG/HR 5 mls/hr IV .Q24H [facility] Rx#:[id number] Other: Weight 74.389 kg 74.389 kg Patient Weight 03/29/20 06:59 Weight 74.389 kg 03/28/20 14:59 03/28/20 14:59 EKG Interpretations (text) Atrial fibrillation with rapid ventricular response Assessment and Plan (1) Nonrheumatic aortic valve stenosis with insufficiency Current Visit: Yes Status: Acute Code(s): I35.2 - NONRHEUMATIC AORTIC (V ALVE) STENOSIS WITH INSUFFICIENCY SNOMED Code(s): 064784045 (2) Atrial fibrillation with RVR Current Visit: Yes Status: Acute Code(s): I48.91 - UNSPECIFIED ATRIAL FIBRILLATION SNOMED Code(s): 996307919010304 (3) Pleural effusion Current Visit: No Status: Acute Code(s): J90 - PLEURAL EFFUSION, NOT ELSEWHERE CLASSIFIED SNOMED Code(s): 70645382 Plan: Continue current medical therapy. Further evaluation to establish the etiology of the left pleural effusion. Prognosis is guarded
[2020-03-29] MEDS ORDERED: HEPARIN SODIUM,PORCINE 5,000 UNIT/ML 1 ML VIAL IV PRN (00:19)
[2020-03-29] MEDS: PANTOPRAZOLE 40 MG TABLET PO SCH (06:31)
[2020-03-29 07:17] LABS: Basophils % (A) 0 %; Eosinophils % (A) 1 %; HCT 29.5 % (34.0-46.0); Hypochromasia Slight; Lymphocytes # (A) 0.6 k/uL (1.0-4.8); Lymphocytes % (A) 16 %; MCH 39.2 pg (25.0-35.0); MCHC 32.5 g/dL (31.0-37.0); MCV 120.5 fL (80.0-100.0); Macrocytosis Marked; Mean Platelet Volume 7.8; Monocytes # (A) 0.4 k/uL (0-1.0); Monocytes % (A) 9 %; Neutrophils # (A) 2.7 k/uL (1.3-7.7); Neutrophils % (A) 70 %; Platelet Count 423 k/uL (150-450); Poikilocytosis Slight; RBC 2.45 m/uL (3.80-5.40); WBC 3.9 k/uL (3.8-10.6)
[2020-03-29 07:18] LABS: HGB 9.6 gm/dL (11.4-16.0)
[2020-03-29 07:28] LABS: African American GFR (CKD) >90 (>60 ml/min/1.73 sqM); Anion Gap 5 mmol/L; Blood Urea Nitrogen 21 mg/dL (7-17); Calcium 8.6 mg/dL (8.4-10.2); Carbon Dioxide 31 mmol/L (22-30); Chloride 96 mmol/L (98-107); Glucose 156 mg/dL (74-99); Non-African American GFR(CKD) 85 (>60 ml/min/1.73 sqM); Potassium 3.6 mmol/L (3.5-5.1); Sodium 132 mmol/L (137-145)
[2020-03-29] MEDS: CHOLECALCIFEROL 1,000 UNIT TAB PO SCH ×2 (08:44→11:23)
[2020-03-29] MEDS: METOPROLOL SUCCINATE (ER) 50 MG TAB.ER.24H PO SCH (08:44)
[2020-03-29] MEDS: CALCIUM CARBONATE 500 MG CHEWABLE PO SCH (08:44)
[2020-03-29] MEDS: ATORVASTATIN 10 MG TAB PO SCH (08:44)
[2020-03-29] MEDS: LISINOPRIL 2.5 MG TAB PO SCH (08:44)
[2020-03-29] MEDS: FUROSEMIDE 40 MG TAB PO SCH ×2 (08:45→21:24)
[2020-03-29] MEDS: POTASSIUM CHLORIDE ER 10 MEQ TAB.ER.PRT PO SCH ×2 (08:45→21:24)
[2020-03-29] MEDS: CYANOCOBALAMIN 500 MCG TAB PO SCH (08:46)
[2020-03-29] MEDS ORDERED: HYDROXYUREA 500 MG CAP PO SCH (09:00)
[2020-03-29] MEDS ORDERED: ASPIRIN 325 MG TAB PO SCH (09:00)
[2020-03-29] MEDS ORDERED: DIGOXIN 250 MCG/ML 2 ML AMP IVP ONE (09:54)
[2020-03-29] MEDS ORDERED: DIGOXIN 250 MCG/ML 2 ML AMP IVP SCH (12:00)
--- NOTE | 2020-03-29 12:11 | P.PN ---
Subjective Progress Note Date: 03/29/20 History of present illness: This is a 89-year-old female with history of aortic valve stenosis and regurgitation was recently evaluated by me because of increasing shortness of breath and cough. Chest x-ray and computed tomography scan showed left-sided pleural effusion. Patient to BNP was not that much elevated. She was seen by field service poultry technician and had pleural tap in February. It showed bloody pleural fluid but no malignant cells were identified. Patient had a bout of atrial fibrillation at the time from which she converted to sinus rhythm. Subsequently patient had a recurrence of the fluid and had a product of a cane by the radiologist. Again, cytology was negative for malignant cells. She is scheduled to see a cardiothoracic surgeon at [facility]. Patient came to the hospital not feeling well and short of breath. She was found to be in atrial fi brillation with rapid ventricular response. Patient also has recurrence of the pleural fluid. She is instructed on IV Cardizem and also IV heparin. Patient also has nausea, lack of appetite and has lost weight. Further recommendations depend upon clinical course. It appears there is suspicion for possible malignancy 03/29: Patient heart rate is still running in the low 100s and blood pressure 96/58. monitoring and evaluation advisor his atrial fibrillation. She is on Cardizem drip at 5 mg and heparin. She denies any chest pain or palpitations. She does have shortness of breath with activity. Pulmonary consult is pending echocardiogram is pending. Physical examination: GENERAL EXAM: Patient is alert and oriented and doesn't appear to be in any acute distress HEENT: Normocephalic. Normal reaction of pupils, equal size, normal range of extraocular motion. No erythema or exudates in the throat. NECK: No masses, no nuchal rigidity. CHEST: No chest wall deformity. LUNGS: Diminished breath sounds, left side. HEART: Irregular heart rhythm. Systolic murmur in the aortic area ABDOMEN: No hepatosplenomegaly, normal bowel sounds, no guarding or rigidity. SKIN: No rashes CENTRAL NERVOUS SYSTEM: No focal deficits. EXTREMITIES: Moderate edema Assessment: A. fib with RVR, paroxysmal Pleural effusion Aortic stenosis Hypertension Hyperlipidemia History of breast cancer with partial mastectomy Plan: Add digoxin 125 g IV push 1 followed by repeat dose in 6 hours, transition to oral 125 g daily Obtain 2-D echocardiogram and Doppler study to assess cardiac structure and function Consult with Dr. Parmar regarding left pleural effusion, etiology Further recommendations to follow based on clinical course. Nurse practitioner note has been reviewed, I agree with documented findings and plan of care. Patient was seen and examined. Objective - Vital Signs Vital signs: Vital Signs Temp 98.1 F 03/29/20 08:40 Pulse 115 H 03/29/20 08:40 Resp 16 03/29/20 08:40 BP 96/58 03/29/20 08:40 Pulse Ox 96 03/29/20 08:40 Intake & Output 03/28/20 03/29/20 03/29/20 18:59 06:59 18:59 Intake Total 8.75 67.25 236.25 Output Total 500 Balance 8.75 -432.75 236.25 Weight 74.389 kg 72 kg Intake: Intake, IV Titration 8.75 67.25 116.25 Amount Diltiazem 125 mg In 8.75 116.25 Sodium Chloride 0.9% 100 ml @ 5 MG/HR 5 mls/hr IV .Q24H [facility] Rx#:[id number] Heparin Sod,Pork in 0.45% 67.25 NaCl 25,000 unit In 0.45 % NaCl 1 250ml.bag @ 12 UNITS/KG/HR 8.927 mls/hr IV .Q24H [facility] Rx#: [id number] Oral 120 Output: Urine 500 Other: Voiding Method Bedside Commode Bedside Commode - Labs CBC & Chem 7: 03/29/20 06:43 03/29/20 06:43 Labs: Abnormal Lab Results - Last 24 Hours (Table) 03/28/20 03/28/20 03/28/20 Range/Units 14:59 14:59 14:59 RBC 2.88 L (3.80-5.40) m/uL Hgb 11.3 L (11.4-16.0) gm/dL Hct (34.0-46.0) % MCV 118.5 H D (80.0-100.0) fL MCH 39.1 H (25.0-35.0) pg Plt Count 547 H (150-450) k/uL Lymphocytes # 0.8 L (1.0-4.8) k/uL Macrocytosis Marked A APTT 21.3 L (22.0-30.0) sec Sodium 131 L (137-145) mmol/L Chloride 90 L (98-107) mmol/L Carbon Dioxide (22-30) mmol/L BUN 27 H (7-17) mg/dL Glucose 206 H (74-99) mg/dL Albumin 3.4 L (3.5-5.0) g/dL 03/28/20 03/29/20 03/29/20 Range/Units 23:27 06:43 06:43 RBC 2.45 L (3.80-5.40) m/uL Hgb 9.6 L D (11.4-16.0) gm/dL Hct 29.5 L (34.0-46.0) % MCV 120.5 H (80.0-100.0) fL MCH 39.2 H (25.0-35.0) pg Plt Count (150-450) k/uL Lymphocytes # 0.6 L (1.0-4.8) k/uL Macrocytosis Marked A APTT 37.2 H (22.0-30.0) sec Sodium 132 L (137-145) mmol/L Chloride 96 L (98-107) mmol/L Carbon Dioxide 31 H (22-30) mmol/L BUN 21 H (7-17) mg/dL Glucose 156 H (74-99) mg/dL Albumin (3.5-5.0) g/dL 03/29/20 Range/Units 08:56 RBC (3.80-5.40) m/uL Hgb (11.4-16.0) gm/dL Hct (34.0-46.0) % MCV (80.0-100.0) fL MCH (25.0-35.0) pg Plt Count (150-450) k/uL Lymphocytes # (1.0-4.8) k/uL Macrocytosis APTT 45.3 H (22.0-30.0) sec Sodium (137-145) mmol/L Chloride (98-107) mmol/L Carbon Dioxide (22-30) mmol/L BUN (7-17) mg/dL Glucose (74-99) mg/dL Albumin (3.5-5.0) g/dL
[2020-03-29] MEDS: HEPARIN SOD,PORK IN 0.45% NACL 25,000 UNIT in 0.45% NACL 1 250ML.BAG IV SCH (15:36)
[2020-03-29] MEDS: DILTIAZEM 125 MG in SODIUM CHLORIDE 0.9% 100 ML IV SCH (18:12)
--- NOTE | 2020-03-29 22:57 | PN ---
PROGRESS NOTE DATE OF SERVICE: 03/29/2020 DATE OF SERVICE: This 89-year-old woman who was admitted with shortness of breath possibly multifactorial, also had left pleural effusion. The patient also had fibrillation with fast ventricular rate, which is being monitored by Cardiology. The heart rate is being controlled at this time. Dr. Parmar is following the patient. Please note also the patient also had [facility] appointment in the near future with Cardiothoracic Surgery. The patient is on Cardizem drip 5 mg/hour. PAST MEDICAL: Reviewed. REVIEW OF SYSTEMS: CARDIOVASCULAR SYSTEM: As mentioned earlier. RESPIRATORY SYSTEM: As mentioned earlier. GI: No nausea. : No dysuria. NERVOUS SYSTEM: No numbness or weakness. CURRENT MEDICATIONS: Current medications are reviewed and include: 1. Tylenol p.r.n. 2. [place] 5 mg q.6 p.r.n. 3. Ventolin. 4. Xanax. 5. Lipitor. 6. Tums. 7. Vitamin D3. 8. Vitamin B12. 9. Lanoxin. 10.Cardizem. 11.Lasix. 12.Heparin. 13.Hydrea. 14.Zestril. 15.Toprol-XL. 16.Protonix. 17.K-Dur. PHYSICAL EXAMINATION: Patient is alert and oriented x2. Pulse 103, regular. Blood pressure 95/58, respirations 16, temperature 98.1, pulse ox 96% on 2 L. HEENT: Conjunctivae normal. Oral mucosa moist. NECK: No jugular venous distention. No carotid bruit. No lymph node enlargement CARDIOVASCULAR: S1, S2 muffled, irregular, ejection systolic murmur, RESPIRATORY: Breath sounds diminished at the bases. No rhonchi, no crackles. Breath sounds diminished on the left side. ABDOMEN: Soft, nontender. LEGS: No edema, no swelling. NERVOUS SYSTEM: No focal deficits. LABS: WBC 3.9, hemoglobin 9.6. Sodium 132, potassium 3.6. ASSESSMENT: 1. Shortness of breath possibly multifactorial secondary to atrial fibrillation with fast ventricular rate as well as left pleural effusion recurrent. 2. History of thoracocentesis of left pleural effusion multiple times. 3. Aortic stenosis. 4. Anemia. 5. Macrocytosis. 6. Increased platelets. 7. Hyponatremia. 8. Paroxysmal atrial fibrillation. 9. Elevated random blood sugar. 10.History of left breast cancer with partial mastectomy. 11.History of leaky valve. 12.Hypertension. 13.Hyperlipidemia. 14.FULL CODE. RECOMMENDATIONS AND DISCUSSION: Recommend to continue current medications, continue symptomatic treatment. Continue with Cardizem. Otherwise cardiology and pulmonology evaluations. Continue with bronchodilators. Continue with home medications. Continue with heparin per protocol. Continue rest of the home medications. Repeat labs in the morning. Two-D echo has been ordered. COVID is pending. Prognosis guarded because of multiple complex medical issues. Discussed with the patient and family, understands and agrees. Further recommendations to follow. MMODL / IJN: [id number] /
[2020-03-30] MEDS: DILTIAZEM 125 MG in SODIUM CHLORIDE 0.9% 100 ML IV SCH (02:21)
--- NOTE | 2020-03-30 02:33 | CONS ---
CONSULTATION PULMONARY/CRITICAL CARE CONSULTATION: DATE OF CONSULTATION: 03/29/2020 REASON FOR CONSULTATION: Shortness of breath. This is an 89-year-old female with a history of left-sided breast cancer. She apparently recently was discovered to have left-sided pleural effusion. She has had a thoracentesis x2 once by Dr. Chung and once by Interventional Radiology. On both occasions, the fluid was exudative, but there was no cancer cells found in the fluid. She was also recently diagnosed with atrial fibrillation and cardioverted. The patient presented to the emergency room on March 28 with complaints of increasing shortness of breath. The patient also had palpitations and racing heartbeat. She went to the ER after talking to Dr. Patton, who she knows. Dr. aPtton called me on the phone to let me know the patient was coming to the ER. He thought the problem would probably be a recurrent left-sided effusion. As it turns out, the patient came in for atrial fibrillation/RVR. She also had some congestive changes on chest x-ray and her left- sided pleural effusion was present but no worse than it was on March 19. She was admitted to the hospital for further evaluation. Today when I walked into the room and explained to her as to what I thought was going on with her, she freely admits that she has an appointment with Dr. Manny Crews at [facility] on Monday. In my opinion, the patient would probably benefit from a PleurX catheter rather than having repeated thoracentesis. Even though the fluid is negative cytologically, it probably does represent a malignant effusion. It certainly is exudative. Anyway, she is feeling better. She is on a Cardizem drip and IV heparin and receiving some nasal oxygen. MEDICATIONS: Her home medications are reviewed. She is on aspirin, Lipitor, calcium carbonate, vitamin D3, vitamin B12, Lasix, Hydrea, lisinopril, metoprolol, potassium chloride, albuterol updraft machine. ALLERGIES: Allergies are ALENDRONATE. MEDICAL HISTORY: Medical history is positive for hyperlipidemia, atrial fibrillation, vitamin D deficiency, hypertension, recent development of a left-sided pleural effusion, status post thoracentesis x2, valvular heart disease, and breast cancer. SURGICAL HISTORY: Surgical history includes thoracentesis x2 and partial left breast partial mastectomy. SOCIAL HISTORY: Negative for tobacco, alcohol or illicit drug use. FAMILY HISTORY: Noncontributory. Her home medications have been reviewed. REVIEW OF SYSTEMS: CONSTITUTIONAL: Negative. NEUROLOGIC: Negative. HEENT: Negative. CARDIOVASCULAR: Rapid heartbeat, racing heart, palpitations, fluttering in the chest. PULMONARY: Shortness of breath, chest congestion. GI: Negative. : Negative. RHEUMATOLOGIC: Negative. IMMUNOLOGIC: Negative. ENDOCRINOLOGIC: Negative. DERMATOLOGIC: Negative. PHYSICAL EXAMINATION: VITAL SIGNS: Current vital signs are reviewed. Temperature is 98.1, heart rate 83, respiratory rate 16, blood pressure 91/52, mean 65 and 2 L saturations 99%. GENERAL: She appears in no acute distress. Nasal O2 in place. HEENT: Examination is grossly unremarkable. NECK: Supple. Full range of motion. No adenopathy. Neck veins are flat. CARDIOVASCULAR: Examination reveals regular rhythm and rate. She appears to be back in sinus rhythm. S1, S2 normal. No distinct murmur. LUNGS: Reveal some mild bibasilar crackles. No wheezes or rhonchi. Breath sounds equal bilaterally. Dullness at the left lung base and diminished breath sounds at the left lung base. ABDOMEN: Soft. Bowel sounds are heard. EXTREMITIES: Are intact. No cyanosis, clubbing, or edema. SKIN: Without rash. NEUROLOGIC: Examination is nonfocal. LABS: Labs are reviewed. White count 3.9, hemoglobin 9.6, hematocrit 29.5, platelet count 423,000. PTT is 45.3. Sodium 132, potassium 3.6, chloride 96, CO2 of 31. Anion gap is 5. BUN and creatinine were 21 and 0.54. The rest of the labs look okay. Microbiology is pending or negative. Chest x-ray shows moderate cardiomegaly, interstitial edema, and mild to moderate pulmonary vascular congestion. There is also a moderate to large left-sided pleural effusion. Medications are reviewed. ASSESSMENT: 1. Shortness of breath, likely related to underlying atrial fibrillation with rapid ventricular response and mild to moderate congestive heart failure with interstitial edema. 2. Moderate left-sided pleural effusion, status post thoracentesis x2. Both times, the fluid was exudate, but cytology was negative. Microbiology was also negative. 3. Hyperlipidemia. 4. Hypertension. 5. Valvular heart disease. 6. Breast cancer, status post lumpectomy. 7. History of thoracentesis x2. PLANS: The patient stated when I walked into the room that she had an appointment at [facility]. She will be seeing Dr. Manny Crews at the [facility] on Monday. Apparently her oncologist, Dr. Bustos sent her down there to be evaluated. She has had thoracentesis x2. Both times the fluid was exudative without cytologic evidence of breast cancer. I do believe though that this fluid is probably malignant and she would benefit from PleurX catheter placement. Additional recommendations and suggestions are forthcoming. She has got no respiratory distress at this time. She is back in sinus rhythm. She is on heparin and Cardizem drip. Additional recommendations and suggestions are forthcoming. MMODL / IJN: [id number] /
[2020-03-30] MEDS: PANTOPRAZOLE 40 MG TABLET PO SCH (06:45)
[2020-03-30 07:30] LABS: Basophils % (A) 0 %; Eosinophils # (A) 0.1 k/uL (0-0.7); Eosinophils % (A) 1 %; HCT 31.3 % (34.0-46.0); Hypochromasia Moderate; Lymphocytes # (A) 0.7 k/uL (1.0-4.8); Lymphocytes % (A) 17 %; MCH 38.8 pg (25.0-35.0); MCV 121.4 fL (80.0-100.0); Macrocytosis Marked; Mean Platelet Volume 7.6; Monocytes # (A) 0.3 k/uL (0-1.0); Monocytes % (A) 8 %; Neutrophils % (A) 70 %; Platelet Count 410 k/uL (150-450); Poikilocytosis Slight; RBC 2.58 m/uL (3.80-5.40); RDW 14.3 % (11.5-15.5); WBC 4.2 k/uL (3.8-10.6)
[2020-03-30 07:47] LABS: African American GFR (CKD) >90 (>60 ml/min/1.73 sqM); Anion Gap 6 mmol/L; Blood Urea Nitrogen 17 mg/dL (7-17); Calcium 8.7 mg/dL (8.4-10.2); Carbon Dioxide 28 mmol/L (22-30); Chloride 98 mmol/L (98-107); Glucose 155 mg/dL (74-99); Non-African American GFR(CKD) 86 (>60 ml/min/1.73 sqM); Potassium 3.7 mmol/L (3.5-5.1); Sodium 132 mmol/L (137-145)
[2020-03-30] MEDS: CHOLECALCIFEROL 1,000 UNIT TAB PO SCH (08:52)
[2020-03-30] MEDS: CALCIUM CARBONATE 500 MG CHEWABLE PO SCH (08:52)
[2020-03-30] MEDS: CYANOCOBALAMIN 500 MCG TAB PO SCH (08:52)
[2020-03-30] MEDS: POTASSIUM CHLORIDE ER 10 MEQ TAB.ER.PRT PO SCH (08:52)
[2020-03-30] MEDS: METOPROLOL SUCCINATE (ER) 50 MG TAB.ER.24H PO SCH (08:52)
[2020-03-30] MEDS: FUROSEMIDE 40 MG TAB PO SCH (08:53)
[2020-03-30] MEDS: ATORVASTATIN 10 MG TAB PO SCH (08:53)
[2020-03-30 09:00] VITALS: RESP 16; TEMP 98.3
[2020-03-30] MEDS ORDERED: HYDROXYUREA 500 MG CAP PO SCH (09:00)
[2020-03-30] MEDS ORDERED: DIGOXIN 125 MCG TAB PO SCH (09:00)
[2020-03-30 09:02] LABS: Polychromasia Present
--- NOTE | 2020-03-30 11:25 | ECHOF ---
Referral Reason:chf MEASUREMENTS -------- HEIGHT: 170.2 cm WEIGHT: 60.8 kg BP: 120/93 IVSd: 1.1 cm (0.6 - 1.1) LVIDd: 3.0 cm (3.9 - 5.3) LVPWd: 1.0 cm (0.6 - 1.1) IVSs: 1.1 cm LVIDs: 1.0 cm LVPWs: 1.4 cm MV EXCURSION: 7.636 mm (> 18.000) MV EF SLOPE: 32 mm/s (70 - 150) EPSS: 0.5 cm MV E Keshawn: 1.50 m/s MV DecT: 262 ms MV A Keshawn: 0.57 m/s MV E/A Ratio: 2.65 AV maxP.52 mmHg AV meanP.93 mmHg AR PHT: 535 ms RAP: 15.00 mmHg RVSP: 42.76 mmHg FINDINGS -------- Atrial fibrillation. This was a technically good study. The left ventricular size is normal. Left ventricular wall thickness is normal. Overall left vent ricular systolic function is normal with, an EF between 60 - 65 %. The right ventricle is normal in size. The left atrial size is normal. The right atrial size is normal. Interatrial and interventricular septum intact. Aortic valve is trileaflet and is moderately thickened. There is mild aortic regurgitation. There is bajxybey-ra-hdzdho aortic stenosis present. Peak/mean gradient across the Aortic Valve is 54.52 mmHg / 36.93mmHg. The mitral valve is normal. The mitral valve leaflets are moderately thickened. Moderate mitral a nnular calcification present. Mild mitral regurgitation is present. Mild mitral stenosis. The peak and mean MV gradients are 19.42mmHg 8.66mmHg as measured by doppler. The aortic root size is normal. The inferior vena cava is mildly dilated. There is a trivial pericardial effusion present. CONCLUSIONS -------- 1. Atrial fibrillation. 2. This was a technically good study. 3. The left ventricular size is normal. 4. Left ventricular wall thickness is normal. 5. Overall left ventricular systolic function is normal with, an EF between 60 - 65 %. 6. The right ventricle is normal in size. 7. The left atrial size is normal. 8. The right atrial size is normal. 9. Interatrial and interventricular septum intact. 10. Aortic valve is trileaflet and is moderately thickened. 11. There is mild aortic regurgitation. 12. There is micjfceh-wg-llxenq aortic stenosis present. 13. Peak/mean gradient across the Aortic Valve is 54.52mmHg / 36.93mmHg. 14. The mitral valve is normal. 15. The mitral valve leaflets are moderately thickened. 16. Moderate mitral annular calcification present. 17. Mild mitral regurgitation is present. 18. The peak and mean MV gradients are 19.42mmHg 8.66mmHg as measured by doppler. 19. Mild mitral stenosis. 20. The aortic root size is normal. 21. The inferior vena cava is mildly dilated. 22. There is a trivial pericardial effusion present. CANNERY TENDER ENGINEER: Kia Salas RDCS
[2020-03-30] MEDS: LISINOPRIL 2.5 MG TAB PO SCH (12:52)
[2020-03-30] MEDS ORDERED: APIXABAN 5 MG TAB PO SCH (13:00)
[2020-03-30] MEDS ORDERED: DILTIAZEM ORAL 30 MG TAB PO SCH (13:00)
--- NOTE | 2020-03-30 14:16 | P.PN ---
Subjective Progress Note Date: 03/30/20 This is a pleasant 89-year-old female who has history of recurrent pleural effusions, she also aortic valve stenosis and regurgitation, was seen in the office by Dr. Moss. History of paroxysmal atrial fibrillation. Presented to the hospital with symptoms of shortness of breath with associated cough. She was seen by a binder technician in February and had a pleural tap performed, it showed bloody fluid but no malignant cells were identified. Cardiology consultation was requested on this admission because of atrial fibrillation. She also has recurrent pleural effusion and the recommendation from pulmonary standpoint is for placement of a Pleurx catheter. She is scheduled to see a cardiothoracic surgeon at [facility] on Monday. Blood pressure 106/60 with a heart rate in the 100, 98% on room air. White blood cell count 4.2, hemoglobin 10.0, platelet count 410. Sodium 132, potassium 3.7, BUN 17, creatinine 0.5. Objective - Vital Signs Vital signs: Vital Signs Temp 98.3 F 03/30/20 08:00 Pulse 108 H 03/30/20 08:00 Resp 16 03/30/20 11:44 BP 106/68 03/30/20 08:00 Pulse Ox 98 03/30/20 08:00 Intake & Output 03/29/20 03/30/20 03/30/20 18:59 06:59 18:59 Intake Total 874.543 357.87 480 Output Total 200 610 400 Balance 674.543 -252.13 80 Weight 74.8 kg Intake: IV 120 107.87 Diltiazem 125 mg In 40 35 Sodium Chloride 0.9% 100 ml @ 5 MG/HR 5 mls/hr IV .Q24H [facility] Rx#:[id number] Heparin Sod,Pork in 0.45% 80 72.87 NaCl 25,000 unit In 0.45 % NaCl 1 250ml.bag @ 12 UNITS/KG/HR 8.927 mls/hr IV .Q24H [facility] Rx#: [id number] Intake, IV Titration 274.543 Amount Diltiazem 125 mg In 116.25 Sodium Chloride 0.9% 100 ml @ 5 MG/HR 5 mls/hr IV .Q24H [facility] Rx#:[id number] Heparin Sod,Pork in 0.45% 158.293 NaCl 25,000 unit In 0.45 % NaCl 1 250ml.bag @ 12 UNITS/KG/HR 8.927 mls/hr IV .Q24H [facility] Rx#: [id number] Oral 480 250 480 Output: Urine 200 610 400 Other: Voiding Method Bedside Commode Bedside Commode Bedside Commode # Voids 1 1 # Bowel Movements 1 - Exam GENERAL EXAM: Patient is alert and oriented and doesn't appear to be in any acut e distress HEENT: Normocephalic. Normal reaction of pupils, equal size, normal range of extraocular motion. No erythema or exudates in the throat. NECK: No masses, no nuchal rigidity. CHEST: No chest wall deformity. LUNGS: Diminished breath sounds, left side. HEART: Irregular heart rhythm. Systolic murmur in the aortic area ABDOMEN: No hepatosplenomegaly, normal bowel sounds, no guarding or rigidity. SKIN: No rashes CENTRAL NERVOUS SYSTEM: No focal deficits. EXTREMITIES: Moderate edema - Labs CBC & Chem 7: 03/30/20 07:04 03/30/20 07:04 Labs: Abnormal Lab Results - Last 24 Hours (Table) 03/30/20 03/30/20 03/30/20 Range/Units 07:04 07:04 07:04 RBC 2.58 L (3.80-5.40) m/uL Hgb 10.0 L (11.4-16.0) gm/dL Hct 31.3 L (34.0-46.0) % MCV 121.4 H (80.0-100.0) fL MCH 38.8 H (25.0-35.0) pg Lymphocytes # 0.7 L (1.0-4.8) k/uL Macrocytosis Marked A APTT 47.2 H (22.0-30.0) sec Sodium 132 L (137-145) mmol/L Creatinine 0.51 L (0.52-1.04) mg/dL Glucose 155 H (74-99) mg/dL Assessment and Plan Plan: Assessment and plan #1 recurrent pleural effusion #2 aortic valve stenosis and aortic insufficiency #3 paroxysmal atrial fibrillation Plan Pulmonary today, there is no plan at this point for Pleurx catheter placement for thoracentesis. We will discontinue the IV heparin and resume the patient's anticoagulation. She may be able to be discharged home today from our perspective, to follow-up for her appointment at [facility]. DNP note has been reviewed, I agree with a documented findings and plan of care. Patient was seen and examined.
[2020-03-30 14:43] VITALS: BP 115/64; PULSE 124
--- NOTE | 2020-03-30 15:52 | P.PN ---
Subjective Progress Note Date: 03/30/20 89-year-old female patient with recurrent pleural effusion exudate, bloody, and the patient was anticipated to see thoracic surgery done at [facility] for thoracoscopy and possibly a Pleurx catheter insertion. Previous thoracentesis has not yielded any malignancy. The patient came in for shortness of breath. She is stable for now on room air oxygen. She has a new onset atrial fibrillation. She is being managed with a Cardizem drip. She'll be also placed on anticoagulation with Eliquis. Cardiology is on the case. She is known to have aortic stenosis/regurgitation and seen by cardiology. Overall, the patient is doing well. She has no specific complaints for now. Less short of breath compared to yesterday. No angina. No palpitations. Renal function stable creatinine of 0.5 with a BUN of 17. Hemoglobin stable at 10.0. Objective - Vital Signs Vital signs: Vital Signs Temp 98.3 F 03/30/20 08:00 Pulse 124 H 03/30/20 12:00 Resp 16 03/30/20 12:00 BP 115/64 03/30/20 12:00 Pulse Ox 96 03/30/20 12:00 Intake & Output 03/29/20 03/30/20 03/30/20 18:59 06:59 18:59 Intake Total 874.543 357.87 720 Output Total 200 610 400 Balance 674.543 -252.13 320 Weight 74.8 kg Intake: IV 120 107.87 Diltiazem 125 mg In 40 35 Sodium Chloride 0.9% 100 ml @ 5 MG/HR 5 mls/hr IV .Q24H [facility] Rx#:[id number] Heparin Sod,Pork in 0.45% 80 72.87 NaCl 25,000 unit In 0.45 % NaCl 1 250ml.bag @ 12 UNITS/KG/HR 8.927 mls/hr IV .Q24H [facility] Rx#: [id number] Intake, IV Titration 274.543 Amount Diltiazem 125 mg In 116.25 Sodium Chloride 0.9% 100 ml @ 5 MG/HR 5 mls/hr IV .Q24H [facility] Rx#:[id number] Heparin Sod,Pork in 0.45% 158.293 NaCl 25,000 unit In 0.45 % NaCl 1 250ml.bag @ 12 UNITS/KG/HR 8.927 mls/hr IV .Q24H [facility] Rx#: [id number] Oral 480 250 720 Output: Urine 200 610 400 Other: Voiding Method Bedside Commode Bedside Commode Bedside Commode # Voids 1 1 # Bowel Movements 1 - Exam GENERAL EXAM: Patient is alert and oriented and doesn't appear to be in any a cute distress Head exam was generally normal. There was no scleral icterus or corneal arcus. Mucous membranes were moist. HEENT: Normocephalic. Normal reaction of pupils, equal size, normal range of e xtraocular motion. No erythema or exudates in the throat. NECK: No masses, no nuchal rigidity. CHEST: No chest wall deformity. LUNGS: Diminished breath sounds, left side. There is also dullness to pe rcussion consistent with pleural effusion HEART: Irregular heart rhythm. Systolic murmur in the aortic area, and this is a systolic ejection murmur grade 4/6 consistent with aortic stenosis. ABDOMEN: No hepatosplenomegaly, normal bowel sounds, no guarding or rigidity. SKIN: Examination of the skin revealed no evidence of significant rashes, suspicious appearing nevi or other concerning lesions. CENTRAL NERVOUS SYSTEM: No focal deficits. EXTREMITIES: Moderate edema which is improving. No cyanosis. No clubbing. - Labs CBC & Chem 7: 03/30/20 07:04 03/30/20 07:04 Labs: Abnormal Lab Results - Last 24 Hours (Table) 03/30/20 03/30/20 03/30/20 Range/Units 07:04 07:04 07:04 RBC 2.58 L (3.80-5.40) m/uL Hgb 10.0 L (11.4-16.0) gm/dL Hct 31.3 L (34.0-46.0) % MCV 121.4 H (80.0-100.0) fL MCH 38.8 H (25.0-35.0) pg Lymphocytes # 0.7 L (1.0-4.8) k/uL Macrocytosis Marked A APTT 47.2 H (22.0-30.0) sec Sodium 132 L (137-145) mmol/L Creatinine 0.51 L (0.52-1.04) mg/dL Glucose 155 H (74-99) mg/dL Assessment and Plan Plan: 1 recurrent exudative bloody left-sided pleural effusion. The patient undergo ne 2 thoracenteses in the past with negative cytologies and the patient is going to be seen by thoracic surgery services at [facility] in regards to this issue for possible thoracoscopy. 2 proximal atrial fibrillation currently on a Cardizem drip for rate control 3 moderate to severe aortic stenosis/insufficiency 4 shortness of breath secondary to above 5 breast cancer with a previous partial mastectomy 6 essentially thrombocytosis maintained on Hydrea on outpatient basis 7 chronic anxiety on Xanax 8 hyperlipidemia Plan no need for another thoracentesis at this point in time Awaiting thoracic surgery evaluation Continue metoprolol and Cardizem orally for rate control in addition to long- term and coagulation with Eliquis Possible discharge within next 24 hours to be followed up on outpatient basis regarding this recurrent left-sided pleural effusion. High suspicion for malignancy based on the above.
--- NOTE | 2020-03-31 04:25 | DS ---
DISCHARGE SUMMARY DATE OF SERVICE: 03/30/2020 FINAL DIAGNOSES: 1. Shortness of breath possibly multifactorial secondary to atrial fibrillation with fast ventricular rate as well as left-sided pleural effusion recurrent. 2. History of thoracocentesis of the left pleural effusion multiple times. 3. Aortic stenosis. 4. Anemia. 5. Macrocytosis. 6. Increased platelets. 7. Hyponatremia. 8. Paroxysmal atrial fibrillation. 9. Elevated random blood sugar. 10.History of left breast cancer with partial mastectomy. 11.History of leaky valve. 12.Hypertension. 13.Hyperlipidemia. 14.Moderate to severe aortic stenosis. 15.FULL CODE. DISCHARGE DISPOSITION: The patient will be discharged in stable condition with guarded prognosis. HISTORY OF PRESENT ILLNESS: This 89-year-old woman with a past medical history of multiple medical problems being followed by Dr. Carmen Reed in the outpatient setting was admitted with shortness of breath. The patient had recurrent left pleural effusion which was aspirated multiple occasions. Patient was found to be in atrial fibrillation with fast ventricular rate, treated with Cardizem. Patient improved significantly. Patient also had a 2D echo with Doppler by Cardiology which showed ejection fraction about 60% to 65% and as well as moderate to severe aortic stenosis and as well as mild aortic regurgitation as well and mild mitral stenosis also noted. On exam, vitals are stable. CARDIOVASCULAR: S1, S2 muffled. ABDOMEN: Soft. NERVOUS SYSTEM: No focal deficit. Patient is keen on going home at this time. Patient also had an appointment in Cardiothoracic Surgery in [facility] on Monday morning. DISCHARGE ADVICE AND MEDICATIONS: 1. Diet is cardiac. 2. Activity limited until followup. 3. Follow up with Dr. Carmen Reed in 2 to 3 days. 4. Follow up with [facility] as advised. 5. Follow up with Cardiology and Pulmonology as recommended. Medications are: 1. Calcium carbonate 500 mg p.o. daily. 2. Ecotrin 325 mg p.o. daily. 3. Hydrea 1000 mg p.o. Monday and 1500 mg Monday, Monday. Monday, , Monday and Monday. 4. Lasix 40 mg p.o. b.i.d. 5. Lipitor 10 mg p.o. daily. 6. Potassium chloride 10 mEq p.o. b.i.d. 7. Toprol XL 50 mg p.o. daily. 8. Albuterol 2.5 q.4 p.r.n. as before. 9. Vitamin B12, 1000 mcg p.o. daily. 10.Vitamin D3, 5000 daily. 11.Zestril 2.5 mg daily. 12.Cardizem 30 mg p.o. t.i.d. 13.Eliquis 5 mg p.o. b.i.d. 14.Lanoxin 125 mcg p.o. daily. To be followed up in the outpatient setting. Once again, the patient will be discharged in a stable condition with guarded prognosis. MMODL / IJN: [id number] /
--- NOTE | 2020-03-31 09:31 | CDI ---
Documentation Clarification Form Date: 03/31/20 From: Louisa Law Phone: If you have a question about this query, please contact Yamilet Maravilla, Sales Program Manager at [phone] between 8am and 5pm. Admit Date: 03/28/20 Discharge Date: 03/30/20 Patient Name: COLLEEN CURRAN Visit Number: [id number] ATTENTION: The Clinical Documentation Specialists (CDI) and [facility] Coding Staff appreciate your assistance in clarifying documentation. Please respond to the clarification below the line at the bottom and electronically sign. The CDI & [facility] Coding staff will review the response and follow-up if needed. Please note: Queries are made part of the Legal Health Record. If you have any questions, please contact the author of this message via ITS. Dear Dr. Micheline Plummer, CHF/heart failure is documented in the H&P and Dr Parmar's consult. History/Risk Factors: PAF, pleural effusions, hyponatremia, aortic and mitral stenosis, hyperlipidemia, vit D deficiency, anemia, hx breast cancer Clinical Indicators: SOB, no hx of fever, rigors or chills. VS/Pulse OX: T-98.3, P-130, R-22, BP-96/58, O2 sat-93 BNP: none Echocardiogram Results: Overall left ventricular systolic function is normal with, an EF between 60- 65 %. Chest X Ray: 1.Moderate cardiomegaly.Interstitial density.Correlate to exclude mild pulmonary vascular congestion. 2.Continued moderate to large left pleural effusion with adjacent atelectasis and/or consolidation, not significantly changed from 03/19/2020. Treatment: Lasix 40 mg PO BID In your professional opinion, can you please clarify the type of chronic CHF if known? Systolic Heart Failure Diastolic Heart Failure Systolic & Diastolic Heart Failure Unable to Determine Other, please specify Diastolic Heart Failure MTDD
== END 2020-03-30 19:21 | disposition home or self-care (01) | DRG 309 ==
LOC: EC 13:59 → 3SCARD 16:00
PROVIDERS: ADMIT Hospitalist; ATTEND Hospitalist
DX: I48.0 Paroxysmal atrial fibrillation (principal); J90 Pleural effusion, not elsewhere classified; E87.1 Hypo-osmolality and hyponatremia; I50.32 Chronic diastolic (congestive) heart failure; Z20.828 Contact with and (suspected) exposure to other viral communicable diseases; I08.0 Rheumatic disorders of both mitral and aortic valves; E78.5 Hyperlipidemia, unspecified; E55.9 Vitamin D deficiency, unspecified; D53.9 Nutritional anemia, unspecified; Z79.82 Long term (current) use of aspirin; Z79.899 Other long term (current) drug therapy; Z85.3 Personal history of malignant neoplasm of breast; Z98.890 Other specified postprocedural states; Z88.8 Allergy status to other drugs, medicaments and biological substances; Z82.49 Family history of ischemic heart disease and other diseases of the circulatory system; I11.0 Hypertensive heart disease with heart failure
CPT/HCPCS: 36415; 71046; 80048; 80053; 83735; 84484; 85025; 85610; 85730; 93005; 93306; 96365; 96366; 96375; 99291